=== PATIENT | female | born 1935 | race Caucasian/White ===

== ENCOUNTER 2022-12-10 17:27 | Inpatient (IN) ==
[2022-12-10] MEDS ORDERED: IOPAMIDOL 100 ML BOTTLE IV ONE (17:28)
--- NOTE | 2022-12-10 17:56 | Emergency Department Note ---
HPI General Chief complaint: Headache Stated complaint: headache Time Seen by Provider: 12/10/22 17:29 Source: patient Mode of arrival: wheelchair Limitations: no limitations History of Present Illness HPI Narrative: Narrative: This is a 87-year-old female resident of [place] who presents with her friend complaining of a severe headache in the bifrontal regions starting this afternoon. She denies any fall or any neurologic disturbances. She denies any previous history of headaches. Her son states that he saw her about 4 PM and she had slurred speech and could not focus to write some things down for him. He attributed it to a urinary tract infection, which he states affects her in this way. Her friend from [place] states that she was having difficulties earlier in the day, but cannot specify exactly when they started. The patient states that her headache started "a little while ago". She denies any nausea, fever sweats chills, neck pain, or any falls. Related Data Home Medications Medication Instructions Recorded Confirmed cholecalciferol (vitamin D3) 125 125 mcg PO QDAY 10/06/22 10/26/22 mcg (5,000 unit) capsule cranberry extract 25,000 mg PO 10/06/22 10/26/22 Previous Rx's Medication Instructions Recorded hydrochlorothiazide 25 mg tablet 25 mg PO QDAY #90 tabs 10/26/22 lisinopril 20 mg tablet 20 mg PO QDAY #90 tabs 10/26/22 metformin 500 mg tablet,extended See Rx Instructions PO .COMPLEX 10/26/22 release 24 hr #270 tabs Allergies Allergy/AdvReac Type Severity Reaction Status Date / Time No Known Drug Allergies Allergy Unverified 10/26/22 14:56 Review of Systems ROS ROS Narrative: Narrative: All systems ED: reviewed and negative except as stated. [facility] Narrative Patient History Narrative: Narrative: Medical/Surgical/Family History All Active Problems (Updated 12/10/22 @ 23:44 by Cheko Hargrove MD) Acute CVA (cerebrovascular accident) (Acute) Headache (Acute) Fall (Acute) Laceration of skin of scalp (Acute) Vitamin D deficiency (Acute) Essential hypertension (Acute) Frequent UTI (Acute) Gout (Chronic) Urge incontinence of urine (Chronic) DM type 2 (diabetes mellitus, type 2) (Chronic) Medical History DM type 2 (diabetes mellitus, type 2) Gout Left ankle/heel History of pulmonary embolism Urge incontinence of urine Urinary tract infection Surgical History No pertinent past surgical history Family History Other No pertinent family history Social History Smoking Status: Never smoker Alcohol Intake Frequency: a few times a month Substance Use: does not use Exam Narrative Narrative: Narrative: General alert oriented x3, and responsive but confused. Neuro: GCS equals 15. Pupils equal round reactive and accommodating extraocular movements are intact without nystagmus. Cranial nerves II through XII are grossly intact with the possibility of some asymmetry of her smile. Patient neglects her left side as when asked to squeeze hands and and to lift legs to touch my hand. She states there is no sensory deficit however. Neck: Supple nontender to movement with no carotid bruits. Head: Atraumatic. CV: Regular rate and rhythm without murmurs clicks rubs or gallops. General Limitations: no limitations Course Vital Signs Vital signs: Vital Signs Temperature 98.6 F 12/10/22 17:34 Pulse Rate 100 H 12/10/22 17:34 Respiratory Rate 19 12/10/22 17:34 Blood Pressure 124/81 12/10/22 17:34 Pulse Oximetry (%) 93 12/10/22 17:34 Oxygen Delivery Method Room Air 12/10/22 17:34 Temperature 98.6 F 12/10/22 17:34 Pulse Rate 106 H 12/10/22 23:26 Respiratory Rate 24 H 12/10/22 23:26 Blood Pressure 187/106 12/10/22 23:26 Pulse Oximetry (%) 100 12/10/22 23:26 Oxygen Delivery Method Room Air 12/10/22 17:34 MDM MDM Narrative Medical decision making narrative: Narrative: Consult with neurology was obtained and they stated that it sounded more like an ischemic cerebrovascular event considering the ignoring the left side of the body. The patient is able to move but just does not recognize her left side of the body when she is asked to do things bilaterally. When speaking about into her friend who is sitting right in front of her she looks over to the right side of the room and gestures in that direction with her right hand. Patient had a slight leukocytosis of 12.9 so a spinal tap was attempted after sedating the patient with ketamine 25 mg IV this was unsuccessful try and obtain any spinal fluid. Blood cultures were obtained and the patient was placed on Rocephin 1 g IV tonight however it seems unlikely that she actually has a infectious etiology for her symptoms. After discussing the case with the hospitalist she was placed on aspirin and clopidogrel and an MRA was ordered for the morning. Sepsis Sepsis Identified: No Lab Data 12/10/22 18:32 12/10/22 18:32 Labs: Lab Results 12/10/22 12/10/22 12/10/22 Range/Units 18:26 18:26 18:32 WBC 12.9 H (4.5-11.0) K/mcL RBC 4.43 (3.59-5.38) M/mcL Hgb 14.0 (11.2-15.7) g/dL Hct 41.7 (34.1-44.9) % POC Hct 45.0 (36-48) MCV 94.1 (80.0-100.0) fL MCH 31.6 (26.0-34.0) pg MCHC 33.6 (31.0-36.0) g/dL RDW 11.7 (11.5-14.5) % Plt Count 293 (140-440) K/mcL MPV 10.5 (8.8-12.5) fL Immature Gran % (Auto) 0.3 (0.0-0.5) % Neut % (Auto) 56.6 (38.0-78.0) % Lymph % (Auto) 25.7 (15.5-49.0) % [place] % (Auto) 9.2 (1.0-12.0) % Eos % (Auto) 7.3 H (0.0-7.0) % Baso % (Auto) 0.9 (0.0-2.0) % Lymph # (Auto) 3.32 (1.50-4.80) K/mcL [place] # (Auto) 1.19 H (0.10-0.90) K/mcL Eos # (Auto) 0.94 H (0.00-0.70) K/mcL Baso # (Auto) 0.11 (0.00-0.30) K/mcL Immature Gran # 0.04 (0.00-0.05) K/mcl Absolute Neutrophils 7.31 (1.80-8.00) K/mcL PT (11.9-14.5) sec INR (0.9-1.1) POC Sodium 136 (133-145) Sodium (133-145) mmol/L POC Potassium 3.9 (3.3-5.1) Potassium (3.3-5.1) mmol/L POC Chloride 93 L (96-108) Chloride (96-108) mmol/L Carbon Dioxide (22-30) mmol/L POC Total CO2 33.0 H (22-30) Anion Gap (8.0-16.0) POC BUN 14 (6-20) BUN (8-23) mg/dL Creatinine (0.6-1.1) mg/dL POC Creatinine 0.5 L (0.6-1.2) GFR Calculation Glucose (70-105) mg/dL POC Glucose 121 H (70-105) Calcium (8.6-10.4) mg/dL POC WB Ioniz Calcium 1.19 (1.16-1.32) Total Bilirubin (0.1-1.0) mg/dL AST (<32) U/L ALT (<40) U/L Alkaline Phosphatase (39-117) U/L Total Protein (5.9-8.4) gm/dL Albumin (3.2-5.2) gm/dL Globulin (2.2-3.7) gm/dL Albumin/Globulin Ratio (1.0-2.3) Urine Color Straw Urine Appearance Clear (Clear) Urine pH 7.0 (5.0-9.0) Ur Specific [place] 1.008 (1.000-1.035) Urine Protein Negative (Negative) mg/dL Urine Glucose (UA) Negative (Negative) mg/dL Urine Ketones Negative (Negative) mg/dL Urine Occult Blood Negative (Negative) mg/dL Urine Nitrate Negative (Negative) Urine Bilirubin Negative (Negative) mg/dL Urine Urobilinogen Negative mg/dL Ur Leukocyte Esterase Negative (Negative) /uL Ur Culture Indicated? No 12/10/22 12/10/22 Range/Units 18:32 18:32 WBC (4.5-11.0) K/mcL RBC (3.59-5.38) M/mcL Hgb (11.2-15.7) g/dL Hct (34.1-44.9) % POC Hct (36-48) MCV (80.0-100.0) fL MCH (26.0-34.0) pg MCHC (31.0-36.0) g/dL RDW (11.5-14.5) % Plt Count (140-440) K/mcL MPV (8.8-12.5) fL Immature Gran % (Auto) (0.0-0.5) % Neut % (Auto) (38.0-78.0) % Lymph % (Auto) (15.5-49.0) % [place] % (Auto) (1.0-12.0) % Eos % (Auto) (0.0-7.0) % Baso % (Auto) (0.0-2.0) % Lymph # (Auto) (1.50-4.80) K/mcL [place] # (Auto) (0.10-0.90) K/mcL Eos # (Auto) (0.00-0.70) K/mcL Baso # (Auto) (0.00-0.30) K/mcL Immature Gran # (0.00-0.05) K/mcl Absolute Neutrophils (1.80-8.00) K/mcL PT 12.3 (11.9-14.5) sec INR 0.9 (0.9-1.1) POC Sodium (133-145) Sodium 133 (133-145) mmol/L POC Potassium (3.3-5.1) Potassium 4.0 (3.3-5.1) mmol/L POC Chloride (96-108) Chloride 92 L (96-108) mmol/L Carbon Dioxide 28 (22-30) mmol/L POC Total CO2 (22-30) Anion Gap 13.0 (8.0-16.0) POC BUN (6-20) BUN 11 (8-23) mg/dL Creatinine 0.5 L (0.6-1.1) mg/dL POC Creatinine (0.6-1.2) GFR Calculation 87 Glucose 110 H (70-105) mg/dL POC Glucose (70-105) Calcium 9.9 (8.6-10.4) mg/dL POC WB Ioniz Calcium (1.16-1.32) Total Bilirubin 0.3 (0.1-1.0) mg/dL AST 45 H (<32) U/L ALT 34 (<40) U/L Alkaline Phosphatase 71 (39-117) U/L Total Protein 7.9 (5.9-8.4) gm/dL Albumin 4.3 (3.2-5.2) gm/dL Globulin 3.6 (2.2-3.7) gm/dL Albumin/Globulin Ratio 1.2 (1.0-2.3) Urine Color Urine Appearance (Clear) Urine pH (5.0-9.0) Ur Specific [place] (1.000-1.035) Urine Protein (Negative) mg/dL Urine Glucose (UA) (Negative) mg/dL Urine Ketones (Negative) mg/dL Urine Occult Blood (Negative) mg/dL Urine Nitrate (Negative) Urine Bilirubin (Negative) mg/dL Urine Urobilinogen mg/dL Ur Leukocyte Esterase (Negative) /uL Ur Culture Indicated? Discharge Plan Patient/Caregiver Discharge Instructions Pt seen by SUPPLY CLERK/PA only: No Clinical Impression: Acute CVA (cerebrovascular accident), Headache Patient Disposition: Xfer As Inpt ([facility]) Follow up with: Mustapha Steele DO [Primary Care Provider] - Prescriptions: No Action cranberry extract 25,000 mg PO cholecalciferol (vitamin D3) 125 mcg (5,000 unit) capsule 125 mcg PO QDAY hydrochlorothiazide 25 mg tablet 25 mg PO QDAY Qty: 90 3RF lisinopril 20 mg tablet 20 mg PO QDAY Qty: 90 3RF metformin 500 mg tablet extended release 24 hr See Rx Instructions PO .COMPLEX Qty: 270 3RF Rx Instructions: 1000 mg qAM and 500 mg qPM orally;
--- NOTE | 2022-12-10 18:18 | Cat Scan Report ---
History: Headaches and increasing confusion TECHNIQUE: The brain was imaged without contrast in axial plane at 2.5 mm intervals. Sagittal and coronal reformats were created. The radiation exposure was limited using dose reduction technology. FINDINGS: There are age-related degenerative changes with mild to moderate atrophy both above and below the tentorium. There are patchy areas of decreased attenuation in the centrum semiovale in the frontal and parietal lobes consistent with age-related ischemia or degeneration. No infarct is detected. There is no hemorrhage, mass effect or evidence of inflammation. Ventricles are prominent but proportionate to the atrophy. There is no abnormal extra-axial fluid collection. Bone windows show no skull lesion. 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 There is moderate bilateral ethmoid, sphenoid and left frontal sinusitis. The left frontal sinusitis has improved. The opacification of the other sinuses has remained relatively unchanged since prior CT on 10/19/22. The appearance of the brain has remained stable. 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 IMPRESSION: Stable age-related degenerative changes in the brain. Moderate sinusitis Dr. Hargrove was called with the report Interpreted and Authenticated by: Luis Enrique Amador 12/10/22
[2022-12-10 19:01] LABS: Basophils # (Auto) 0.11 K/mcL (0.00-0.30); Basophils % (Auto) 0.9 % (0.0-2.0); Eosinophils # (Auto) 0.94 K/mcL (0.00-0.70); Eosinophils % (Auto) 7.3 % (0.0-7.0); Hematocrit 41.7 % (34.1-44.9); Lymphocytes # (Auto) 3.32 K/mcL (1.50-4.80); Lymphocytes % (Auto) 25.7 % (15.5-49.0); Mean Cell Volume 94.1 fL (80.0-100.0); Mean Corpuscular HGB Conc 33.6 g/dL (31.0-36.0); Mean Platelet Volume 10.5 fL (8.8-12.5); Monocytes # (Auto) 1.19 K/mcL (0.10-0.90); Monocytes % (Auto) 9.2 % (1.0-12.0); Neutrophils % (Auto) 56.6 % (38.0-78.0); Platelet Count 293 K/mcL (140-440); RBC 4.43 M/mcL (3.59-5.38); Red Cell Distribution Width 11.7 % (11.5-14.5); WBC 12.9 K/mcL (4.5-11.0)
[2022-12-10 19:10] LABS: Appearance,Urine CLEAR (Clear); Bilirubin,Urine Negative (Negative); Color,Urine STRAW; Culture Indicated,Urine No; Glucose,Urine (UA) Negative (Negative); Ketones,Urine Negative (Negative); Leukocyte Esterase,Urine Negative /uL (Negative); Nitrate,Urine Negative (Negative); Protein,Urine Negative (Negative); Specific Gravity,Urine 1.008 (1.000-1.035); Urine Blood Negative (Negative); Urobilinogen,Urine Negative
[2022-12-10 19:13] LABS: INR 0.9 (0.9-1.1); Prothrombin Time 12.3 sec (11.9-14.5)
[2022-12-10 19:20] LABS: ALT/SGPT 34 U/L (<40); AST/SGOT 45 U/L (<32); Albumin 4.3 gm/dL (3.2-5.2); Albumin/Globulin Ratio 1.2 (1.0-2.3); Alkaline Phosphatase 71 U/L (39-117); Bilirubin,Total 0.3 mg/dL (0.1-1.0); Blood Urea Nitrogen 11 mg/dL (8-23); Calcium 9.9 mg/dL (8.6-10.4); Carbon Dioxide 28 mmol/L (22-30); Chloride 92 mmol/L (96-108); Globulin 3.6 gm/dL (2.2-3.7); Glomerular Filtration Rate 87; Glucose 110 mg/dL (70-105)
--- NOTE | 2022-12-10 20:17 | Cat Scan Report ---
History: New stroke symptoms with headaches and ignoring the left side of body TECHNIQUE: Following injection of intravenous nonionic contrast the patient was imaged during the arterial phase from the aortic arch to the top of the head. Sagittal, coronal and 3-D reformatted images were created. The radiation exposure was limited using dose reduction technology. FINDINGS: NECK: The lung apices are clear. The aortic arch is normal in caliber. There are few small calcified plaques along the wall. The great vessels arising from the aorta are normal in caliber with no stenosis or occlusion. The common carotids are normal. There is a moderate amount of densely calcified plaque at the origins of both internal carotids. This causing a 60% stenosis of the right and 50% stenosis left internal carotid and their origins. There is no stenosis of the external carotids. The mid and distal portions of both internal carotids are normal. There is no evidence of ulcerated plaque or dissection. The vertebral arteries are normal in caliber and symmetric. Incidentally noted is severe degenerative disc disease and arthritis at C6-7 with moderate disc degeneration at C3-4 and C5-6. Brain: There are calcified plaques in the cavernous portions of both internal carotids. These are not causing significant stenosis. The supraclinoid internal carotids are normal. The anterior and middle cerebral arteries are normal in caliber. The intracranial portions of both vertebral arteries are normal and nearly symmetric. The basilar artery and posterior fossa circulation are normal. There is no intracranial stenosis, thrombosis or vascular malformation. No aneurysm or abnormal enhancing lesion is present. 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 Normal intracranial arterial circulation. Dr. Hargrove was called with the report Interpreted and Authenticated by: Luis Enrique Amador 12/10/22
[2022-12-10] MEDS ORDERED: morphine 2 MG/ML VIAL IV ONE (20:22)
--- NOTE | 2022-12-10 20:31 | Cat Scan Report ---
Impression: The study is dictated in conjunction with the brain CT angiogram. Please see that report Interpreted and Authenticated by: Luis Enrique Amador 12/10/22
[2022-12-10 20:39] LABS: POC Calcium, Ionized 1.19 (1.16-1.32); POC Creatinine 0.5 (0.6-1.2); POC Potassium 3.9 (3.3-5.1)
[2022-12-10] MEDS ORDERED: ONDANSETRON 4 MG/2 ML VIAL ONE (20:44)
[2022-12-10] MEDS ORDERED: ONDANSETRON 4 MG/2 ML VIAL IV ONE (20:44)
[2022-12-10] MEDS ORDERED: HALOPERIDOL LACTATE 5 MG/ML VIAL IV ONE (21:03)
[2022-12-10] MEDS ORDERED: 0.9 % SODIUM CHLORIDE 250 ML IV ONE (21:04)
[2022-12-10] MEDS ORDERED: LORazepam 2 MG/ML VIAL IV ONE ×2 (22:22→22:35)
[2022-12-10] MEDS ORDERED: KETAMINE 10 MG/ML ML IV ONE ×2 (22:34→23:44)
[2022-12-10] MEDS ORDERED: SODIUM CHLORIDE 0.9% IV ONE (22:45)
[2022-12-10] MEDS ORDERED: KETAMINE IV ONE (22:45)
[2022-12-10] MEDS ORDERED: ASPIRIN 325 MG ENTERIC COATED TABLET PO ONE (23:31)
[2022-12-10] MEDS ORDERED: CLOPIDOGREL 300 MG TABLET PO ONE (23:32)
[2022-12-10] MEDS ORDERED: cefTRIAXone 1 GM VIAL IV ONE (23:34)
[2022-12-10] MEDS ORDERED: KETAMINE 50 MG/ML ML ONE ×2 (23:43→23:48)
--- NOTE | 2022-12-11 00:07 | Internal Med History&Physical ---
HPI History of Present Illness Patient information: Note initiated : 12/11/22 at 12:04 am Service Date, if different from initiated Date: [12/10/22] Patient: Suzie Disla a 87 y/o F admitted on for headache. Chief Complaint: [slurred speech, headache] Chief complaint: slurred speech, headache History of present illness: Ms. Disla is a 87 year old F history of essential hypertensions, type 2 diabetes mellitus, recurrent UTI, presenting with 1 day history of new onset slurred speech and headaches. Patient was normal yesterday. Today at around 3 PM in the afternoon, her son noticed the patient's to have slurred speech. He alerted his sibling to send the patient to our ER for further evaluations. Upon arrival to our ER at around 5:30 PM, patient was coming of severe headaches. Initial work-up by the ED physician found patient to have left-sided neglect and there was no sensory deficit or motor deficit when she was asked about her individual limbs. It was also reported that patient would look over to her r ight and neglect. No nocturnal rigidity reported. Vital signs significant for elevated blood pressure 215 over 117 mmHg, as well as mild tachycardia with heart rate in the low 100s. Labs significant for leukocytosis with WBC 12.9. UA does not suggest the presence of urinary infections. CT of the head without contrast no acute intracranial pathologies. CT angiogram head at the neck showing atherosclerosis in the left carotid bifurcations bilaterally causing 60% stenosis at the origin of the right internal carotid and 50% stenosis at the origin of the left internal carotids. Lumbar puncture was attempted but failed. Patient was currently sedated. Admission request is called for acute stroke with differential diagnosis of viral and much less likely bacterial meningitis. Review of Systems ROS unobtainable: due to mental status PFSH PFSH All Active Problems (Updated 12/11/22 @ 00:21 by Constantine Alan MD) Meningitis (Acute) Hypertensive urgency (Acute) Acute CVA (cerebrovascular accident) (Acute) Headache (Acute) Fall (Acute) Laceration of skin of scalp (Acute) Vitamin D deficiency (Acute) Essential hypertension (Acute) Frequent UTI (Acute) Gout (Chronic) Urge incontinence of urine (Chronic) DM type 2 (diabetes mellitus, type 2) (Chronic) Medical History DM type 2 (diabetes mellitus, type 2) Gout Left ankle/heel History of pulmonary embolism Urge incontinence of urine Urinary tract infection Surgical History No pertinent past surgical history Family History Other No pertinent family history Social History marital status: smoking status: Never smoker alcohol intake frequency: a few times a month substance use type: does not use MEDS/ALLERGIES Home Medications and Allergies Home Medications Medication Instructions Recorded Confirmed Type cholecalciferol (vitamin D3) 125 125 mcg PO QDAY 10/06/22 10/26/22 History mcg (5,000 unit) capsule cranberry extract 25,000 mg PO 10/06/22 10/26/22 History hydrochlorothiazide 25 mg tablet 25 mg PO QDAY #90 tabs 10/26/22 10/26/22 Rx lisinopril 20 mg tablet 20 mg PO QDAY #90 tabs 10/26/22 10/26/22 Rx metformin 500 mg tablet,extended See Rx Instructions PO .COMPLEX 10/26/22 10/26/22 Rx release 24 hr #270 tabs Allergies Allergy/AdvReac Type Severity Reaction Status Date / Time No Known Drug Allergies Allergy Unverified 10/26/22 14:56 EXAM Constitutional Vitals: Temp Pulse Resp BP Pulse Ox O2 Del Method 37.0 C 106 H 24 H 187/106 100 Room Air 12/10/22 17:34 12/10/22 23:26 12/10/22 23:26 12/10/22 23:26 12/10/22 23:26 12/10/22 17:34 General appearance: no acute distress Head Head exam: Present atraumatic and normocephalic Eye Eye exam: Present EOMI and PERRL ENT ENT exam: Present mucous membranes moist, normal exam and normal external ear exam Neck Neck exam: Present normal inspection; Absent lymphadenopathy, tenderness or thyromegaly Respiratory Respiratory exam: Absent accessory muscle use, respiratory distress or wheezes Cardiovascular Cardiovascular exam: Present normal rate and rhythm; Absent JVD GI/Abdominal GI/Abdominal exam: Present normal bowel sounds and soft; Absent organomegaly or tenderness Extremities Exam Extremities exam: Present full ROM, normal capillary refill and normal inspection; Absent tenderness Neurological Exam Neurological exam: Present CN II-XII intact Additional comments: sedated left sided neglect Psychiatric Psychiatric exam: Present normal affect and normal mood; Absent anxious or depressed Skin Skin exam: Present dry and intact DATA Data Completed and Pending Labs: Labs from last 24 hours 12/10/22 12/10/22 12/10/22 18:32 18:32 18:32 WBC 12.9 H RBC 4.43 Hgb 14.0 Hct 41.7 POC Hct MCV 94.1 MCH 31.6 MCHC 33.6 RDW 11.7 Plt Count 293 MPV 10.5 Immature Gran % (Auto) 0.3 Neut % (Auto) 56.6 Lymph % (Auto) 25.7 [place] % (Auto) 9.2 Eos % (Auto) 7.3 H Baso % (Auto) 0.9 Lymph # (Auto) 3.32 [place] # (Auto) 1.19 H Eos # (Auto) 0.94 H Baso # (Auto) 0.11 Immature Gran # 0.04 Absolute Neutrophils 7.31 PT 12.3 INR 0.9 POC Sodium Sodium 133 POC Potassium Potassium 4.0 POC Chloride Chloride 92 L Carbon Dioxide 28 POC Total CO2 Anion Gap 13.0 POC BUN BUN 11 Creatinine 0.5 L POC Creatinine GFR Calculation 87 Glucose 110 H POC Glucose Calcium 9.9 POC WB Ioniz Calcium Total Bilirubin 0.3 AST 45 H ALT 34 Alkaline Phosphatase 71 Total Protein 7.9 Albumin 4.3 Globulin 3.6 Albumin/Globulin Ratio 1.2 Urine Color Urine Appearance Urine pH Ur Specific [place] Urine Protein Urine Glucose (UA) Urine Ketones Urine Occult Blood Urine Nitrate Urine Bilirubin Urine Urobilinogen Ur Leukocyte Esterase Ur Culture Indicated? 12/10/22 12/10/22 18:26 18:26 WBC RBC Hgb Hct POC Hct 45.0 MCV MCH MCHC RDW Plt Count MPV Immature Gran % (Auto) Neut % (Auto) Lymph % (Auto) [place] % (Auto) Eos % (Auto) Baso % (Auto) Lymph # (Auto) [place] # (Auto) Eos # (Auto) Baso # (Auto) Immature Gran # Absolute Neutrophils PT INR POC Sodium 136 Sodium POC Potassium 3.9 Potassium POC Chloride 93 L Chloride Carbon Dioxide POC Total CO2 33.0 H Anion Gap POC BUN 14 BUN Creatinine POC Creatinine 0.5 L GFR Calculation Glucose POC Glucose 121 H Calcium POC WB Ioniz Calcium 1.19 Total Bilirubin AST ALT Alkaline Phosphatase Total Protein Albumin Globulin Albumin/Globulin Ratio Urine Color Straw Urine Appearance Clear Urine pH 7.0 Ur Specific [place] 1.008 Urine Protein Negative Urine Glucose (UA) Negative Urine Ketones Negative Urine Occult Blood Negative Urine Nitrate Negative Urine Bilirubin Negative Urine Urobilinogen Negative Ur Leukocyte Esterase Negative Ur Culture Indicated? No A/P Assessment and plan (1) DM type 2 (diabetes mellitus, type 2): Status: Chronic (2) Hypertensive urgency: Status: Acute (3) Acute CVA (cerebrovascular accident): Status: Acute (4) Meningitis: Status: Acute Narrative A/P Narrative: Assessment and Plans: 1. Acute ischemic stroke: DDx: bacterial meningitis, aseptic meningitis Inpatient PCU with telemetry NPO with IV fluid until cleared by bedside swallowing evaluation NIH stroke scale qSHIFT Neuro Check q2hr Permissive hypertension for 48 hours with Hydralazine 10mg IV q4-6hr PRN SBBP>=220 and/or DBP>=110mmHg MRI brain stroke protocol 2D echocardiogram Lipid panel HgA1c screening Aspirin Plaxiv Lipitor Physical therapy Occupational therapy Speech therapy Empiric antibiotics with Vancomycin, Ampicillin, and Meropenem for 48 hours while awaiting LP and blood culture results Will attempt lumbar puncture again in the morning 2. Essential hypertension: Permissive hypertension for 48 hours with Hydralazine 10mg IV q4-6hr PRN SBBP>=220 and/or DBP>=110mmHg 3. T2DM: HgA1c screening Hold Metformin Insulin Lispro SSI q6hr while NPO Accu Check q6hr while NPO Hypoglycemia protocol D5LR@100cc/hr while NPO while awaiting bedside swallowing evaluation GI ppx: not currently indicated DVT ppx: Lovenox Code status: Full Prognosis: guarded Disposition: inpatient PCU; PT OT SLT Time Spent With Patient Time: Total time spent is greater than 50% in coordination of care (as documented) at patient's floor/unit and/or counseling patient: Initial: Total time with patient: 55 - 74 minutes
[2022-12-11] MEDS ORDERED: VANCOMYCIN 1,000 MG in 0.9 % SODIUM CHLORIDE 250 ML IV ONE (00:13)
[2022-12-11] MEDS ORDERED: VANCOMYCIN PER PHARMACY IV ONE (01:18)
[2022-12-11] MEDS ORDERED: ONDANSETRON 4 MG/2 ML VIAL IV PRN (01:18)
[2022-12-11] MEDS ORDERED: DEXTROSE 50% 50 ML VIAL IV PRN (01:18)
[2022-12-11] MEDS ORDERED: LORazepam 2 MG/ML VIAL IV PRN (01:18)
[2022-12-11] MEDS ORDERED: SENNOSIDES 1 TABLET PO PRN (01:18)
[2022-12-11] MEDS ORDERED: DEXTROSE 5%-LR 1,000 ML IV SCH (01:18)
[2022-12-11] MEDS ORDERED: LACTULOSE 20 GM/30 ML ORAL.SOL PO PRN (01:18)
[2022-12-11] MEDS ORDERED: DEXTROSE 31 GM ORAL.SUSP PO PRN (01:18)
[2022-12-11] MEDS ORDERED: hydrALAZINE 20 MG/ML VIAL IV PRN (01:18)
[2022-12-11] MEDS ORDERED: IPRATROPIUM/ALBUTEROL 3 ML AMPUL.NEB NEB PRN (01:18)
[2022-12-11] MEDS ORDERED: ACETAMINOPHEN 650 MG/65 ML BAG IV ONE (01:24)
[2022-12-11] MEDS ORDERED: INSULIN LISPRO 1 UNIT/0.01 ML UNIT SQ ONE ×2 (01:39→05:44)
[2022-12-11] MEDS ORDERED: SODIUM CHLORIDE IV ONE ×2 (01:40→05:48)
[2022-12-11] MEDS: INSULIN LISPRO 1 UNIT/0.01 ML UNIT SQ SCH ×5 (01:40→21:05)
[2022-12-11] MEDS ORDERED: ACETAMINOPHEN 1,000 MG/100 ML BAG IV ONE (01:44)
[2022-12-11 02:14] LABS: HDL Cholesterol 46 mg/dL (>40); LDL Cholesterol,Calculated 47 mg/dL (<100); Non-HDL Cholesterol 55 mg/dL (<130); Triglycerides 45 mg/dL (<150)
[2022-12-11] MEDS: MEROPENEM 2 GM in 0.9 % SODIUM CHLORIDE 50 ML IV SCH ×3 (02:32→14:17)
[2022-12-11] MEDS: AMPICILLIN SODIUM 2 GM VIAL IV SCH ×2 (03:11→05:48)
[2022-12-11] MEDS: 0.9 % SODIUM CHLORIDE 10 ML SYRINGE IV SCH ×3 (05:50→21:07)
[2022-12-11 07:30] LABS: ALT/SGPT 24 U/L (<40); AST/SGOT 27 U/L (<32); Albumin 3.7 gm/dL (3.2-5.2); Albumin/Globulin Ratio 1.3 (1.0-2.3); Alkaline Phosphatase 57 U/L (39-117); Bilirubin,Total 0.4 mg/dL (0.1-1.0); Blood Urea Nitrogen 9 mg/dL (8-23); Calcium 8.5 mg/dL (8.6-10.4); Carbon Dioxide 29 mmol/L (22-30); Chloride 96 mmol/L (96-108); Globulin 2.9 gm/dL (2.2-3.7); Glomerular Filtration Rate 82; Glucose 163 mg/dL (70-105)
[2022-12-11 07:35] LABS: Basophils # (Auto) 0.07 K/mcL (0.00-0.30); Basophils % (Auto) 0.5 % (0.0-2.0); Eosinophils # (Auto) 0.09 K/mcL (0.00-0.70); Eosinophils % (Auto) 0.7 % (0.0-7.0); Hematocrit 38.4 % (34.1-44.9); Lymphocytes # (Auto) 2.46 K/mcL (1.50-4.80); Lymphocytes % (Auto) 17.8 % (15.5-49.0); Mean Cell Volume 93.7 fL (80.0-100.0); Mean Corpuscular HGB Conc 33.9 g/dL (31.0-36.0); Mean Platelet Volume 10.8 fL (8.8-12.5); Monocytes # (Auto) 1.22 K/mcL (0.10-0.90); Monocytes % (Auto) 8.8 % (1.0-12.0); Neutrophils % (Auto) 71.8 % (38.0-78.0); Platelet Count 302 K/mcL (140-440); Red Cell Distribution Width 11.8 % (11.5-14.5); WBC 13.8 K/mcL (4.5-11.0)
[2022-12-11] MEDS ORDERED: VANCOMYCIN PER PHARMACY IV SCH (07:45)
[2022-12-11 07:55] LABS: Estimated Average Glucose(eAG) 134 mg/dL; Hemoglobin A1C 6.3 % Hgb (4.0-6.0)
--- NOTE | 2022-12-11 08:21 | XRay Report ---
HISTORY: Increased confusion, headaches FINDINGS: There are mild generalized alveolar opacities in both lungs. This is predominantly located in a perihilar distribution. Heart size is upper limits of normal. No pleural effusion is present. There is no lobar consolidation and no evidence of a mass. Arthritis is present in the spine and both shoulders. IMPRESSION: Bilateral alveolar opacities. This could be due to congestive heart failure with edema or bilateral pneumonia. Interpreted and Authenticated by: Luis Enrique Amador 12/11/22
[2022-12-11] MEDS: CLOPIDOGREL 75 MG TABLET PO SCH (08:57)
[2022-12-11] MEDS: ENOXAPARIN 40 MG/0.4 ML SYRINGE SQ SCH (08:57)
[2022-12-11] MEDS: ATORVASTATIN 40 MG TABLET PO SCH (08:57)
[2022-12-11] MEDS: ASPIRIN 81 MG TAB.CHEW PO SCH (08:57)
[2022-12-11] MEDS: AMPICILLIN SODIUM 2 GM in 0.9 % SODIUM CHLORIDE 100 ML IV SCH ×4 (09:15→21:06)
--- NOTE | 2022-12-11 09:16 | Internal Med Progress Note ---
SUBJECTIVE Subjective Patient information: Note initiated : 12/11/22 at 9:14 am Service Date, if different from initiated Date: [] Patient: Suzie Disla a 87 y/o F admitted on 12/11/22 for headache. Chief Complaint: [] Interval history: Ms. Disla is a 87 year old F history of essential hypertensions, type 2 diabetes mellitus, recurrent UTI, presenting with 1 day history of new onset slurred speech and headaches. Patient was normal yesterday. Today at around 3 PM in the afternoon, her son noticed the patient's to have slurred speech. He alerted his sibling to send the patient to our ER for further evaluations. Upon arrival to our ER at around 5:30 PM, patient was coming of severe headaches. Initial work-up by the ED physician found patient to have left-sided neglect and there was no sensory deficit or motor deficit when she was asked about her individual limbs. It was also reported that patient would look over to her right and neglect. No nocturnal rigidity reported. Vital signs significant for elevated blood pressure 215 over 117 mmHg, as well as mild tachycardia with heart rate in the low 100s. Labs significant for leukocytosis with WBC 12.9. UA does not suggest the presence of urinary infections. CT of the head without contrast no acute intracranial pathologies. CT angiogram head at the neck showing atherosclerosis in the left carotid bifurcations bilaterally causing 60% stenosis at the origin of the right internal carotid and 50% stenosis at the origin of the left internal carotids. Lumbar puncture was attempted but failed. Patient was currently sedated. Admission request is called for acute stroke with differential diagnosis of viral and much less likely bacterial meningitis. 12/11: Low-grade fever Tmax 37.8 early this morning. Cultures no growth to date. NIH stroke scale pending. Patient is awake and alert and oriented x3 this morning as she passed bedside swallowing evaluations. Blood pressure is fine currently 100 over 59 mmHg. She denies any headaches. There is no more spatial neglect or visual field neglect. Patient is feeling fine. Pending MRI of the brain stroke protocol as well as 2D echocardiogram. Continue aspirin, Plavix, and Lipitor. Continue permissive hypertension for 48 hours. Resume CC diet and saline lock the patient's. Continue to hold metformin and do sliding scale insulin for glycemic control instead. Since patient improved clinically, and empiric antibiotics already started, the value of delayed lumbar puncture is extremely low and hence would not proceed. Physical therapy, Occupational Therapy, and speech therapy evaluation and treatments. Constitutional Vitals: Vital Signs Temp Pulse Resp BP Pulse Ox O2 Del Method O2 Flow Rate 36.4 C 73 23 H 100/59 95 Nasal Cannula 2 12/11/22 08:01 12/11/22 08:01 12/11/22 08:01 12/11/22 08:01 12/11/22 08:01 12/11/22 06:01 12/11/22 06:01 Period Temp Pulse Resp BP Sys/Field Pulse Ox O2 Del Method O2 Flow Rate Last 24 Hr 36.4 C-37.8 C 73-117 17-30 100-215/59-172 91-100 Nasal Cannula-Room Air 2-2 Intake and Output 12/10/22 12/11/22 12/11/22 19:59 03:59 11:59 Intake Total 365 Output Total 1 1 Balance 364 -1 Weight 69.717 kg 66.933 kg Intake & Output: Intake & Output 12/10/22 12/11/22 12/11/22 19:59 03:59 11:59 Intake Total 365 Output Total 1 1 Balance 364 -1 Weight 69.717 kg 66.933 kg Intake: IV 365 Merrem 2 gm In Sodium Chloride 50 0.9% 50 ml @ 100 mls/hr IV Q8H [facility] Rx#:[id number] Vancomycin 1,000 mg In Sodium 250 Chloride 0.9% 250 ml @ 250 mls/ hr IV ONCE ONE Rx#:[id number] Output: # of times incontinent of urine 1 1 Head Head exam: Present atraumatic and normal inspection Eye Eye exam: Present normal appearance ENT ENT exam: Present mucous membranes moist, normal exam and normal external ear exam Neck Neck exam: Present normal inspection Respiratory Respiratory exam: Present normal respiratory exam Cardiovascular Cardiovascular exam: Present normal rate and rhythm GI/Abdominal GI/Abdominal exam: Present normal bowel sounds Back Exam Back exam: Present normal inspection Neurological Exam Neurological exam: Present alert and oriented X3 Skin Skin exam: Present intact and warm OBJ DATA Labs 12/11/22 05:39 12/11/22 05:39 Labs: Abnormal Lab Results 12/11/22 12/11/22 12/10/22 05:39 05:39 18:32 WBC 13.8 H Eos % (Auto) [place] # (Auto) 1.22 H Eos # (Auto) Immature Gran # 0.06 H Absolute Neutrophils 9.93 H Sodium 132 L POC Chloride Chloride 92 L POC Total CO2 Anion Gap 7.0 L Creatinine 0.5 L POC Creatinine Glucose 163 H 110 H POC Glucose Hemoglobin A1c 6.3 H Calcium 8.5 L AST 45 H 12/10/22 12/10/22 18:32 18:26 WBC 12.9 H Eos % (Auto) 7.3 H [place] # (Auto) 1.19 H Eos # (Auto) 0.94 H Immature Gran # Absolute Neutrophils Sodium POC Chloride 93 L Chloride POC Total CO2 33.0 H Anion Gap Creatinine POC Creatinine 0.5 L Glucose POC Glucose 121 H Hemoglobin A1c Calcium AST Meds: Medications Acetaminophen (Acetaminophen 325 Mg Tablet) 650 mg PO Q6HP PRN; Protocol PRN Reason: Per Pain Protocol/Fever > 101 Albuterol/Ipratropium (Ipratropium/Albuterol 3 Ml Ampul.Neb) 3 ml NEB Q4HRT PRN PRN Reason: Wheezing Aspirin (Aspirin 81 Mg Tab.Chew) 81 mg PO DAILY [facility] Last Admin: 12/11/22 08:57 Dose: 81 mg Atorvastatin Calcium (Atorvastatin 40 Mg Tablet) 40 mg PO DAILY [facility] Last Admin: 12/11/22 08:57 Dose: 40 mg Clopidogrel Bisulfate (Clopidogrel 75 Mg Tablet) 75 mg PO DAILY [facility] Last Admin: 12/11/22 08:57 Dose: 75 mg Dextrose (Dextrose 50% 50 Ml Vial) 0 ml IV UD PRN PRN Reason: Per Sliding Scale Diagnostic Test (Pha) (Accu-Chek 1 Each Strip) 1 each FS ACHS [facility] Docusate Sodium (Docusate Sodium 100 Mg Capsule) 100 mg PO BID [facility] Enoxaparin Sodium (Enoxaparin 40 Mg/0.4 Ml Syringe) 40 mg SQ DAILY [facility] Last Admin: 12/11/22 08:57 Dose: 40 mg Glucose (Dextrose 31 Gm Oral.Susp) 15 gm PO PRN PRN PRN Reason: Hypoglycemia Hydralazine HCl (Hydralazine 20 Mg/Ml Vial) 10 mg IV Q4-6HP PRN PRN Reason: Hypertension Meropenem 2 gm/ Sodium (Chloride) 50 mls @ 100 mls/hr IV Q8H [facility]; Protocol Last Admin: 12/11/22 08:32 Dose: 100 mls/hr Vancomycin HCl 1,000 mg/ (Sodium Chloride) 250 mls @ 250 mls/hr IV Q12H [facility] Ampicillin Sodium 2 gm/ Sodium (Chloride) 100 mls @ 100 mls/hr IV Q4H [facility] Insulin Human Lispro (Insulin Lispro 1 Unit/0.01 Ml Unit) 0 unit SQ ACHS [facility]; Protocol Lactulose (Lactulose 20 Gm/30 Ml Oral.Latosha) 10 gm PO DAILYP PRN PRN Reason: Constipation Lorazepam (Lorazepam 2 Mg/Ml Vial) 1 mg IV Q4-6HP PRN PRN Reason: ANXIETY/SEDATION Ondansetron HCl (Ondansetron 4 Mg/2 Ml Vial) 4 mg IV Q4HP PRN; Protocol PRN Reason: Nausea And Vomiting Senna (Sennosides 1 Tablet) 2 tab PO HSP PRN PRN Reason: Constipation Sodium Chloride (0.9 % Sodium Chloride 10 Ml Syringe) 10 ml IV Q8 [facility] Last Admin: 12/11/22 05:50 Dose: 10 ml Vancomycin HCl (Vancomycin Per Pharmacy) 1 order IV UD [facility]; Protocol A/P Assessment and plan (1) DM type 2 (diabetes mellitus, type 2): Status: Chronic (2) Hypertensive urgency: Status: Acute (3) Acute CVA (cerebrovascular accident): Status: Acute (4) Meningitis: Status: Acute Narrative A/P Narrative: Assessment and Plans: 1. Acute ischemic stroke: DDx: bacterial meningitis, aseptic meningitis Inpatient med surg with telemetry Passed bedside swallowing evaluation, resume CC diet NIH stroke scale qSHIFT Neuro Check q4hr Permissive hypertension for 48 hours with Hydralazine 10mg IV q4-6hr PRN SBBP>=220 and/or DBP>=110mmHg MRI brain stroke protocol 2D echocardiogram Lipid panel HgA1c screening Aspirin Plavix Lipitor Physical therapy Occupational therapy Speech therapy Empiric antibiotics with Vancomycin, Ampicillin, and Meropenem for 48 hours while awaiting blood culture results Since patient improved clinically, and empiric antibiotics already started, the value of delayed lumbar puncture is extremely low and hence would not proceed 2. Essential hypertension: Permissive hypertension for 48 hours with Hydralazine 10mg IV q4-6hr PRN SBBP>=220 and/or DBP>=110mmHg 3. T2DM: HgA1c screening Hold Metformin Insulin Lispro AC HS Accu Check AC HS Hypoglycemia protocol Resume CC diet GI ppx: not currently indicated DVT ppx: Lovenox Code status: Full Prognosis: Stable Disposition: inpatient med surg tele; PT OT SLT Time Spent With Patient Time: Total time spent is greater than 50% in coordination of care (as documented) at patient's floor/unit and/or counseling patient: Subsequent: Total time with patient: 35 - 49 minutes QUALITY Stroke Symptom Onset Unknown: No
[2022-12-11] MEDS: DOCUSATE SODIUM 100 MG CAPSULE PO SCH ×2 (11:45→21:04)
--- NOTE | 2022-12-11 12:04 | Magnetic Resonance Report ---
History: Stroke symptoms with headache, slurred speech, weakness and ignoring the left side of body TECHNIQUE: Stroke protocol was performed using multiple pulse sequences. FINDINGS: There is no acute infarct. No hemorrhage or neoplasm are present. There are age-related degenerative changes with mild to moderate generalized cerebral atrophy. T2 images demonstrate large confluent areas of abnormal increased signal in the right matter throughout the frontal and parietal lobes with milder involvement in the occipital and posterior temporal lobes. No cortical lesion is present. Ventricles are normal in size. No abnormal extra-axial fluid collection is present. There is moderate bilateral ethmoid and maxillary sinusitis. Allowing for differences in technique there has been no change in appearance of the brain since yesterday's CT scan. IMPRESSION: No acute infarct or hemorrhage Moderate age-related degenerative changes Dr. Alan was called with the report Interpreted and Authenticated by: Luis Enrique Amador 12/11/22
[2022-12-11] MEDS: VANCOMYCIN 1,000 MG in 0.9 % SODIUM CHLORIDE 250 ML IV SCH ×2 (12:07→22:23)
[2022-12-11] MEDS: MEROPENEM 2 GM in 0.9 % SODIUM CHLORIDE 100 ML IV SCH (21:07)
[2022-12-11] MEDS: ACETAMINOPHEN 325 MG TABLET PO PRN (22:23)
[2022-12-12] MEDS: AMPICILLIN SODIUM 2 GM in 0.9 % SODIUM CHLORIDE 100 ML IV SCH ×6 (00:38→20:57)
[2022-12-12] MEDS: 0.9 % SODIUM CHLORIDE 10 ML SYRINGE IV SCH ×3 (05:03→20:58)
[2022-12-12] MEDS: MEROPENEM 2 GM in 0.9 % SODIUM CHLORIDE 100 ML IV SCH ×3 (05:03→20:58)
[2022-12-12 07:15] LABS: Basophils # (Auto) 0.09 K/mcL (0.00-0.30); Hematocrit 37.8 % (34.1-44.9); Hemoglobin 12.8 g/dL (11.2-15.7); Lymphocytes # (Auto) 2.54 K/mcL (1.50-4.80); Lymphocytes % (Auto) 28.2 % (15.5-49.0); Mean Corpuscular HGB Conc 33.9 g/dL (31.0-36.0); Mean Platelet Volume 10.9 fL (8.8-12.5); Monocytes # (Auto) 0.93 K/mcL (0.10-0.90); Monocytes % (Auto) 10.3 % (1.0-12.0); Neutrophils % (Auto) 50.2 % (38.0-78.0); Platelet Count 272 K/mcL (140-440); RBC 3.98 M/mcL (3.59-5.38); Red Cell Distribution Width 11.8 % (11.5-14.5)
[2022-12-12 08:02] LABS: ALT/SGPT 23 U/L (<40); AST/SGOT 32 U/L (<32); Albumin 3.3 gm/dL (3.2-5.2); Albumin/Globulin Ratio 1.2 (1.0-2.3); Alkaline Phosphatase 53 U/L (39-117); Bilirubin,Total 0.4 mg/dL (0.1-1.0); Blood Urea Nitrogen 10 mg/dL (8-23); Calcium 8.8 mg/dL (8.6-10.4); Carbon Dioxide 31 mmol/L (22-30); Chloride 99 mmol/L (96-108); Globulin 2.8 gm/dL (2.2-3.7); Glomerular Filtration Rate 94; Glucose 135 mg/dL (70-105)
[2022-12-12] MEDS: INSULIN LISPRO 1 UNIT/0.01 ML UNIT SQ SCH ×4 (08:03→20:57)
--- NOTE | 2022-12-12 08:40 | Internal Med Progress Note ---
SUBJECTIVE Subjective Patient information: Note initiated : 12/12/22 at 8:36 am Service Date, if different from initiated Date: [] Patient: Suzie Disla a 87 y/o F admitted on 12/11/22 for headache. Chief Complaint: [] Interval history: Ms. Disla is a 87 year old F history of essential hypertensions, type 2 diabetes mellitus, recurrent UTI, presenting with 1 day history of new onset slurred speech and headaches. Patient was normal yesterday. Today at around 3 PM in the afternoon, her son noticed the patient's to have slurred speech. He alerted his sibling to send the patient to our ER for further evaluations. Upon arrival to our ER at around 5:30 PM, patient was coming of severe headaches. Initial work-up by the ED physician found patient to have left-sided neglect and there was no sensory deficit or motor deficit when she was asked about her individual limbs. It was also reported that patient would look over to her right and neglect. No nocturnal rigidity reported. Vital signs significant for elevated blood pressure 215 over 117 mmHg, as well as mild tachycardia with heart rate in the low 100s. Labs significant for leukocytosis with WBC 12.9. UA does not suggest the presence of urinary infections. CT of the head without contrast no acute intracranial pathologies. CT angiogram head at the neck showing atherosclerosis in the left carotid bifurcations bilaterally causing 60% stenosis at the origin of the right internal carotid and 50% stenosis at the origin of the left internal carotids. Lumbar puncture was attempted but failed. Patient was currently sedated. Admission request is called for acute stroke with differential diagnosis of viral and much less likely bacterial meningitis. 12/11: Low-grade fever Tmax 37.8 early this morning. Cultures no growth to date. NIH stroke scale pending. Patient is awake and alert and oriented x3 this morning as she passed bedside swallowing evaluations. Blood pressure is fine currently 100 over 59 mmHg. She denies any headaches. There is no more spatial neglect or visual field neglect. Patient is feeling fine. Pending MRI of the brain stroke protocol as well as 2D echocardiogram. Continue aspirin, Plavix, and Lipitor. Continue permissive hypertension for 48 hours. Resume CC diet and saline lock the patient's. Continue to hold metformin and do sliding scale insulin for glycemic control instead. Since patient improved clinically, and empiric antibiotics already started, the value of delayed lumbar puncture is extremely low and hence would not proceed. Physical therapy, Occupational Therapy, and speech therapy evaluation and treatments. 12/12: Low-grade fever Tmax 37.3 overnight. Cultures no growth to date. MRI of the brain negative for any acute ischemia. Echocardiogram report pending. Patient is awake and alert and oriented x3. She is tolerating her breakfast fine. She is coming of mild headache not as bad as compared to the episode she had at time of admissions. She denies having any confusions or GI upset such as nausea or vomiting. Blood pressures currently 164 over 82 mmHg. Continue aspirin, Plavix, and Lipitor. Continue permissive hypertension for 48 hours. d/c Telemetry. Continue to hold metformin and do sliding scale insulin for glycemic control instead. Continue empiric antibiotics vancomycin and ampicillin and meropenem for 48 hours. Physical therapy, Occupational Therapy, and speech therapy evaluation and treatments. Constitutional Vitals: Vital Signs Temp Pulse Resp BP Pulse Ox O2 Del Method O2 Flow Rate 36.4 C 72 23 H 164/82 90 Room Air 0 12/12/22 07:50 12/12/22 04:01 12/12/22 07:50 12/12/22 07:50 12/12/22 07:50 12/12/22 04:01 12/11/22 14:20 Period Temp Pulse Resp BP Sys/Field Pulse Ox O2 Del Method O2 Flow Rate Last 24 Hr 36.4 C-37.3 C 72-84 15-23 110-164/51-100 90-97 Room Air-Room Air 0 Intake and Output 12/11/22 12/12/22 12/12/22 19:59 03:59 11:59 Intake Total 1320 1030 200 Output Total 4 429 251 Balance 1316 601 -51 Weight 68.748 kg Intake & Output: Intake & Output 12/11/22 12/12/22 12/12/22 19:59 03:59 11:59 Intake Total 1320 1030 200 Output Total 4 429 251 Balance 1316 601 -51 Weight 68.748 kg Intake: IV 500 550 200 Ampicillin 2 gm In Sodium 200 200 100 Chloride 0.9% 100 ml @ 100 mls/ hr IV Q4H [facility] Rx#:[id number] Merrem 2 gm In Sodium Chloride 100 100 0.9% 100 ml @ 100 mls/hr IV Q8H [facility] Rx#:[id number] Merrem 2 gm In Sodium Chloride 50 0.9% 50 ml @ 100 mls/hr IV Q8H [facility] Rx#:[id number] Vancomycin 1,000 mg In Sodium 250 250 Chloride 0.9% 250 ml @ 250 mls/ hr IV Q12H [facility] Rx#:[id number] Oral 820 480 Output: Void Amount 425 250 # of times incontinent of urine 4 4 1 Other: Meal Dinner Percent of Meal Consumed 100% Feeding Ability Independent Urine Appearance Clear Urine Color [place] Yellow Yellow Urine Odor Strong Strong # Voids 1 Head Head exam: Present atraumatic and normal inspection Eye Eye exam: Present normal appearance ENT ENT exam: Present mucous membranes moist, normal exam and normal external ear exam Neck Neck exam: Present normal inspection Respiratory Respiratory exam: Present normal respiratory exam Cardiovascular Cardiovascular exam: Present normal rate and rhythm GI/Abdominal GI/Abdominal exam: Present normal bowel sounds Back Exam Back exam: Present normal inspection Neurological Exam Neurological exam: Present alert and oriented X3 Skin Skin exam: Present intact and warm OBJ DATA Labs 12/12/22 05:26 12/12/22 05:26 Labs: Abnormal Lab Results 12/12/22 12/12/22 12/11/22 05:26 05:26 05:39 WBC Eos % (Auto) 10.0 H [place] # (Auto) 0.93 H Eos # (Auto) 0.90 H Immature Gran # Absolute Neutrophils Sodium 132 L POC Chloride Chloride Carbon Dioxide 31 H POC Total CO2 Anion Gap 7.0 L Creatinine 0.4 L POC Creatinine Glucose 135 H 163 H POC Glucose Hemoglobin A1c 6.3 H Calcium 8.5 L AST 32 H 12/11/22 12/10/22 12/10/22 05:39 18:32 18:32 WBC 13.8 H 12.9 H Eos % (Auto) 7.3 H [place] # (Auto) 1.22 H 1.19 H Eos # (Auto) 0.94 H Immature Gran # 0.06 H Absolute Neutrophils 9.93 H Sodium POC Chloride Chloride 92 L Carbon Dioxide POC Total CO2 Anion Gap Creatinine 0.5 L POC Creatinine Glucose 110 H POC Glucose Hemoglobin A1c Calcium AST 45 H 12/10/22 18:26 WBC Eos % (Auto) [place] # (Auto) Eos # (Auto) Immature Gran # Absolute Neutrophils Sodium POC Chloride 93 L Chloride Carbon Dioxide POC Total CO2 33.0 H Anion Gap Creatinine POC Creatinine 0.5 L Glucose POC Glucose 121 H Hemoglobin A1c Calcium AST Meds: Medications Acetaminophen (Acetaminophen 325 Mg Tablet) 650 mg PO Q6HP PRN; Protocol PRN Reason: Per Pain Protocol/Fever > 101 Last Admin: 12/11/22 22:23 Dose: 650 mg Albuterol/Ipratropium (Ipratropium/Albuterol 3 Ml Ampul.Neb) 3 ml NEB Q4HRT PRN PRN Reason: Wheezing Aspirin (Aspirin 81 Mg Tab.Chew) 81 mg PO DAILY [facility] Last Admin: 12/11/22 08:57 Dose: 81 mg Atorvastatin Calcium (Atorvastatin 40 Mg Tablet) 40 mg PO DAILY [facility] Last Admin: 12/11/22 08:57 Dose: 40 mg Clopidogrel Bisulfate (Clopidogrel 75 Mg Tablet) 75 mg PO DAILY [facility] Last Admin: 12/11/22 08:57 Dose: 75 mg Dextrose (Dextrose 50% 50 Ml Vial) 0 ml IV UD PRN PRN Reason: Per Sliding Scale Diagnostic Test (Pha) (Accu-Chek 1 Each Strip) 1 each FS ACHS [facility] Last Admin: 12/12/22 08:03 Dose: 1 each Docusate Sodium (Docusate Sodium 100 Mg Capsule) 100 mg PO BID [facility] Last Admin: 12/11/22 21:04 Dose: 100 mg Enoxaparin Sodium (Enoxaparin 40 Mg/0.4 Ml Syringe) 40 mg SQ DAILY [facility] Last Admin: 12/11/22 08:57 Dose: 40 mg Ergocalciferol (Ergocalciferol (Vitamin D2) 50,000 Unit Capsule) 50,000 unit PO Th@0900 [facility] Glucose (Dextrose 31 Gm Oral.Susp) 15 gm PO PRN PRN PRN Reason: Hypoglycemia Hydralazine HCl (Hydralazine 20 Mg/Ml Vial) 10 mg IV Q4-6HP PRN PRN Reason: Hypertension Vancomycin HCl 1,000 mg/ (Sodium Chloride) 250 mls @ 250 mls/hr IV Q12H [facility] Last Infusion: 12/11/22 23:37 Dose: Infused Ampicillin Sodium 2 gm/ Sodium (Chloride) 100 mls @ 100 mls/hr IV Q4H [facility] Last Infusion: 12/12/22 06:05 Dose: Infused Meropenem 2 gm/ Sodium (Chloride) 100 mls @ 100 mls/hr IV Q8H [facility]; Protocol Last Infusion: 12/12/22 06:06 Dose: Infused Insulin Human Lispro (Insulin Lispro 1 Unit/0.01 Ml Unit) 0 unit SQ [facility]; Protocol Last Admin: 12/12/22 08:03 Dose: Not Given Lactulose (Lactulose 20 Gm/30 Ml Oral.Latosha) 10 gm PO DAILYP PRN PRN Reason: Constipation Ondansetron HCl (Ondansetron 4 Mg/2 Ml Vial) 4 mg IV Q4HP PRN; Protocol PRN Reason: Nausea And Vomiting Senna (Sennosides 1 Tablet) 2 tab PO HSP PRN PRN Reason: Constipation Sodium Chloride (0.9 % Sodium Chloride 10 Ml Syringe) 10 ml IV Q8 [facility] Last Admin: 12/12/22 05:03 Dose: Not Given Vancomycin HCl (Vancomycin Per Pharmacy) 1 order IV [facility] [place]; Protocol A/P Assessment and plan (1) DM type 2 (diabetes mellitus, type 2): Status: Chronic (2) Hypertensive urgency: Status: Acute (3) Acute CVA (cerebrovascular accident): Status: Acute (4) Meningitis: Status: Acute Narrative A/P Narrative: Assessment and Plans: 1. Acute ischemic stroke: DDx: bacterial meningitis, aseptic meningitis Inpatient med surg Passed bedside swallowing evaluation, resume CC diet NIH stroke scale qSHIFT Neuro Check q4hr Permissive hypertension for 48 hours with Hydralazine 10mg IV q4-6hr PRN SBBP>=220 and/or DBP>=110mmHg MRI brain stroke protocol negative for any acute ischemia 2D echocardiogram Lipid panel HgA1c 6.3 Aspirin Plavix Lipitor Physical therapy Occupational therapy Speech therapy Empiric antibiotics with Vancomycin, Ampicillin, and Meropenem for 48 hours while awaiting blood culture results Since patient improved clinically, and empiric antibiotics already started, the value of delayed lumbar puncture is extremely low and hence would not proceed 2. Essential hypertension: Permissive hypertension for 48 hours with Hydralazine 10mg IV q4-6hr PRN SBBP>=2 20 and/or DBP>=110mmHg 3. T2DM: HgA1c 6.3 Hold Metformin Insulin Lispro AC HS Accu Check AC HS Hypoglycemia protocol Resume CC diet GI ppx: not currently indicated DVT ppx: Lovenox Code status: Full Prognosis: Stable Disposition: inpatient med surg; PT OT SLT Time Spent With Patient Time: Total time spent is greater than 50% in coordination of care (as documented) at patient's floor/unit and/or counseling patient: Subsequent: Total time with patient: 35 - 49 minutes QUALITY Stroke Symptom Onset Unknown: No
[2022-12-12] MEDS: CLOPIDOGREL 75 MG TABLET PO SCH (08:50)
[2022-12-12] MEDS: ATORVASTATIN 40 MG TABLET PO SCH (08:50)
[2022-12-12] MEDS: ASPIRIN 81 MG TAB.CHEW PO SCH (08:50)
[2022-12-12] MEDS: ENOXAPARIN 40 MG/0.4 ML SYRINGE SQ SCH (08:50)
[2022-12-12] MEDS: DOCUSATE SODIUM 100 MG CAPSULE PO SCH ×2 (09:36→20:57)
[2022-12-12] MEDS: VANCOMYCIN 1,000 MG in 0.9 % SODIUM CHLORIDE 250 ML IV SCH ×2 (11:20→21:58)
[2022-12-12] MEDS: ACETAMINOPHEN 325 MG TABLET PO PRN (19:31)
[2022-12-13] MEDS: AMPICILLIN SODIUM 2 GM in 0.9 % SODIUM CHLORIDE 100 ML IV SCH ×3 (00:40→09:31)
[2022-12-13] MEDS: 0.9 % SODIUM CHLORIDE 10 ML SYRINGE IV SCH (05:04)
[2022-12-13] MEDS: MEROPENEM 2 GM in 0.9 % SODIUM CHLORIDE 100 ML IV SCH (05:04)
[2022-12-13 05:57] LABS: Basophils # (Auto) 0.09 K/mcL (0.00-0.30); Basophils % (Auto) 0.9 % (0.0-2.0); Eosinophils # (Auto) 0.95 K/mcL (0.00-0.70); Eosinophils % (Auto) 9.3 % (0.0-7.0); Hematocrit 38.7 % (34.1-44.9); Hemoglobin 13.2 g/dL (11.2-15.7); Lymphocytes # (Auto) 2.93 K/mcL (1.50-4.80); Lymphocytes % (Auto) 28.8 % (15.5-49.0); Mean Cell Volume 93.5 fL (80.0-100.0); Mean Corpuscular HGB Conc 34.1 g/dL (31.0-36.0); Mean Platelet Volume 10.1 fL (8.8-12.5); Monocytes # (Auto) 1.06 K/mcL (0.10-0.90); Monocytes % (Auto) 10.4 % (1.0-12.0); Neutrophils % (Auto) 50.2 % (38.0-78.0); Platelet Count 274 K/mcL (140-440); RBC 4.14 M/mcL (3.59-5.38); Red Cell Distribution Width 11.6 % (11.5-14.5); WBC 10.2 K/mcL (4.5-11.0)
[2022-12-13 06:18] LABS: ALT/SGPT 22 U/L (<40); AST/SGOT 25 U/L (<32); Albumin 3.5 gm/dL (3.2-5.2); Albumin/Globulin Ratio 1.1 (1.0-2.3); Alkaline Phosphatase 56 U/L (39-117); Bilirubin,Total 0.4 mg/dL (0.1-1.0); Blood Urea Nitrogen 9 mg/dL (8-23); Calcium 8.8 mg/dL (8.6-10.4); Carbon Dioxide 28 mmol/L (22-30); Chloride 98 mmol/L (96-108); Globulin 3.2 gm/dL (2.2-3.7); Glomerular Filtration Rate 94; Glucose 141 mg/dL (70-105)
[2022-12-13] MEDS: INSULIN LISPRO 1 UNIT/0.01 ML UNIT SQ SCH ×2 (08:35→11:45)
[2022-12-13] MEDS: ENOXAPARIN 40 MG/0.4 ML SYRINGE SQ SCH (08:35)
[2022-12-13] MEDS: DOCUSATE SODIUM 100 MG CAPSULE PO SCH (08:35)
[2022-12-13] MEDS: ATORVASTATIN 40 MG TABLET PO SCH (08:35)
[2022-12-13] MEDS: ASPIRIN 81 MG TAB.CHEW PO SCH (08:35)
[2022-12-13] MEDS: CLOPIDOGREL 75 MG TABLET PO SCH (08:35)
[2022-12-13] MEDS ORDERED: HYDROCHLOROTHIAZIDE 25 MG TABLET PO SCH (11:00)
[2022-12-13] MEDS ORDERED: LISINOPRIL 20 MG TABLET PO SCH (11:00)
[2022-12-13] MEDS: VANCOMYCIN 1,000 MG in 0.9 % SODIUM CHLORIDE 250 ML IV SCH (11:45)
--- NOTE | 2022-12-13 13:41 | Discharge Summary ---
Discharge Provider Provider IMPORTANT FOLLOW-UP INFORMATION FOR PCP: Patient information: Note initiated : 12/13/22 at 1:39 pm Service Date, if different from initiated Date: [] Patient: Suzie Disla 87 y/o F admitted on 12/11/22 for headache. Chief Complaint: [] Date of admission: 12/11/22 01:07 Discharge date: 12/13/22 Primary care physician: Mustapha Steele DO Admitting clinician: Constantine Alan Attending physician on admission: Constantine Alan Consults: 12/10/22 Consult to Physician [CONS] Stat Comment: Consulting Provider: Constantine Alan Reason For Exam: Physician to Consult Attending physician on discharge: len broussard md Discharging clinician: len broussard md COURSE Hospital Course Hospital course: 87 yo female with HTN. She presented with encephalopathy and uncontrolled HTN with SBP > 200. Workup was negative for CVA including normal MRI Brain. Echo is normal. As BP improved so too did encephalopathy. PT recommends return home to assisted living with [facility]. Pt is discharged home and given refills on her home antihypertensives. Discharge diagnosis: hypertensive encephalopathy Reason for admission: uncontrolled BP, hypertensive encephalopathy Time Spent with Patient Time attestation: Total time spent providing and/or coordinating discharge services: Time spent: Less than 30 minutes EXAM Constitutional Vitals: Temp Pulse Resp BP Pulse Ox O2 Del Method O2 Flow Rate 99.1 F H 84 20 165/86 95 Room Air 0 12/13/22 12:00 12/13/22 12:00 12/13/22 12:00 12/13/22 12:00 12/13/22 12:00 12/13/22 12:00 12/11/22 14:20 General appearance: average body habitus and no acute distress Head Head exam: Present atraumatic Respiratory Respiratory exam: Present normal respiratory exam Cardiovascular Cardiovascular exam: Present normal rate and rhythm GI/Abdominal GI/Abdominal exam: Present normal bowel sounds and soft; Absent distended Neurological Exam Neurological exam: Present CN II-XII intact, normal gait, oriented X3 and reflexes normal Discharge Data Data Completed and Pending Labs on day of discharge: Labs from last 24 hours 12/13/22 12/13/22 12/13/22 08:04 05:16 05:16 WBC 10.2 RBC 4.14 Hgb 13.2 Hct 38.7 MCV 93.5 MCH 31.9 MCHC 34.1 RDW 11.6 Plt Count 274 MPV 10.1 Immature Gran % (Auto) 0.4 Neut % (Auto) 50.2 Lymph % (Auto) 28.8 Pitkin % (Auto) 10.4 Eos % (Auto) 9.3 H Baso % (Auto) 0.9 Lymph # (Auto) 2.93 Pitkin # (Auto) 1.06 H Eos # (Auto) 0.95 H Baso # (Auto) 0.09 Immature Gran # 0.04 Absolute Neutrophils 5.11 Sodium 134 Potassium 3.3 Chloride 98 Carbon Dioxide 28 Anion Gap 8.0 BUN 9 Creatinine 0.4 L GFR Calculation 94 Glucose 141 H Calcium 8.8 Total Bilirubin 0.4 AST 25 ALT 22 Alkaline Phosphatase 56 Total Protein 6.7 Albumin 3.5 Globulin 3.2 Albumin/Globulin Ratio 1.1 Vancomycin Trough 15.1 Preliminary micro results at discharge 12/10/22 23:59 Blood Culture - Preliminary Blood 12/10/22 23:54 Blood Culture - Preliminary Blood Discharge Plan Patient/Caregiver Discharge Instructions Activity: resume usual activities as tolerated Instructions: Hypertension (DC) Activity Restrictions/Additional Instructions: Increase activity as tolerated, continue with a consistent carbohydrate diet. Your Primary Care Physician will contact you to schedule an appointment. [facility] will contact you to schedule an appointment. This discharge packet is provided to you to help keep you informed about your care. We want to ensure you get everything you need when you go home. You will also be receiving a call from us in a few days to follow up with you and see how you are doing since your discharge. This gives us a chance to listen to any concerns you maybe experiencing since you were discharged or any additional needs you may have, as well as providing us feedback on your care experience. We strive to always provide excellent care and thank you for your feedback and for choosing [facility]. Prescriptions: Continued ergocalciferol (vitamin D2) 1,250 mcg (50,000 unit) capsule 1,250 mcg PO WEEKLY Rx Instructions: Takes on metformin 500 mg tablet extended release 24 hr See Rx Instructions .ROUTE .COMPLEX Patient Comments: TAKE 2 TABLETS BY MOUTH EVERY MORNING AND 1 TABLET EVERY EVENING Rx Instructions: Take 2 tablets every morning and take 1 tablet in the evening. lisinopril 20 mg tablet 20 mg PO QDAY Qty: 30 0RF hydrochlorothiazide 25 mg tablet 25 mg PO QDAY Qty: 30 0RF Prescription drug monitoring program results: PDMP not reviewed Follow Up Plan Follow up with: Mustapha Steele DO [Primary Care Provider] - (Please see your PCP within one week. ) Patient Disposition: Home Health Service Discharge Orders: Discharge Order (Routine); Ordered 12/13/22 Ordered By: Len Broussard
[2022-12-14] MEDS ORDERED: PNEUMOCOCCAL 23-VAL P-SAC VAC 0.5 ML SYRINGE IM ONE (10:00)
[2022-12-16] MEDS ORDERED: ERGOCALCIFEROL (VITAMIN D2) 50,000 UNIT CAPSULE PO SCH (09:00)
== END 2022-12-13 14:33 | disposition home health service (06) | DRG 78 ==
LOC: ED 17:27 → ICU 12-11 01:07
PROVIDERS: ADMIT Internal Medicine; ATTEND Internal Medicine

== ENCOUNTER 2024-05-13 17:10 | Inpatient (IN) ==
[2024-05-13] MEDS: 0.9 % SODIUM CHLORIDE 1,000 ML IV ONE ×2 (18:15→20:28)
[2024-05-13] MEDS: METOPROLOL TARTRATE 5 MG/5 ML VIAL IV ONE (18:30)
[2024-05-13 18:31] LABS: Basophils # (Auto) 0.03 K/mcL (0.00-0.30); Basophils % (Auto) 0.1 % (0.0-2.0); Eosinophils # (Auto) 0 K/mcL (0.00-0.70); Eosinophils % (Auto) 0 % (0.0-7.0); Hematocrit 41.4 % (34.1-44.9); Hemoglobin 14.4 g/dL (11.2-15.7); Lymphocytes # (Auto) 0.84 K/mcL (1.50-4.80); Lymphocytes % (Auto) 3.5 % (15.5-49.0); Mean Corpuscular HGB Conc 34.8 g/dL (31.0-36.0); Mean Platelet Volume 10.3 fL (8.8-12.5); Monocytes # (Auto) 2.24 K/mcL (0.10-0.90); Monocytes % (Auto) 9.3 % (1.0-12.0); Neutrophils % (Auto) 86.7 % (38.0-78.0); Platelet Count 334 K/mcL (140-440); Red Cell Distribution Width 12.5 % (11.5-14.5); WBC 24.1 K/mcL (4.5-11.0)
[2024-05-13 18:38] LABS: ALT/SGPT 24 U/L (<40); AST/SGOT 80 U/L (<32); Albumin 3.7 gm/dL (3.2-5.2); Albumin/Globulin Ratio 0.9 (1.0-2.3); Alkaline Phosphatase 82 U/L (39-117); Blood Urea Nitrogen 14 mg/dL (8-23); Calcium 10.1 mg/dL (8.6-10.4); Carbon Dioxide 28 mmol/L (22-30); Chloride 87 mmol/L (96-108); Globulin 4.3 gm/dL (2.2-3.7); Glomerular Filtration Rate 86; Glucose 220 mg/dL (70-105); Potassium 3.7 mmol/L (3.3-5.1); Sodium 131 mmol/L (133-145)
[2024-05-13] MEDS: cefTRIAXone 1 GM VIAL IV ONE (20:02)
[2024-05-13 20:13] LABS: Appearance,Urine Cloudy (Clear); Bacteria,Urine Few /hpf (0); Bilirubin,Urine Negative (Negative); Color,Urine Yellow; Culture Indicated,Urine Yes; Glucose,Urine (UA) Negative (Negative); Ketones,Urine 80 mg/dL (Negative); Leukocyte Esterase,Urine Small /uL (Negative); Mucus,Urine Few /hpf; Nitrate,Urine Positive (Negative); PH,Urine 5.5 (5.0-9.0); Protein,Urine >=300 mg/dL (Negative); Specific Gravity,Urine >= 1.030 (1.000-1.035); Urine Blood Large ery/mcL (Negative); Urine Hyaline Cast -1000 /lph (0-2); Urine RBC 25 /hpf (0-3); Urine Squamous Epithelial Cell 4 /hpf (0-4); Urine WBC > 182 /hpf (0-4); Urobilinogen,Urine Normal
[2024-05-14] MEDS ORDERED: POTASSIUM CHLORIDE 20 MEQ TABLET PO PRN (02:08)
[2024-05-14] MEDS ORDERED: POTASSIUM CHLORIDE 40 MEQ in DEXTROSE 5% IN WATER 500 ML IV PRN (02:08)
[2024-05-14] MEDS ORDERED: DEXTROSE 50% 50 ML VIAL IV PRN (02:08)
[2024-05-14] MEDS ORDERED: IPRATROPIUM/ALBUTEROL 3 ML AMPUL.NEB NEB PRN (02:08)
[2024-05-14] MEDS ORDERED: ONDANSETRON 4 MG/2 ML VIAL IV PRN (02:08)
[2024-05-14] MEDS ORDERED: SENNOSIDES 1 TABLET PO PRN (02:08)
[2024-05-14] MEDS ORDERED: DEXTROSE 31 GM ORAL.SUSP PO PRN (02:08)
[2024-05-14] MEDS ORDERED: MAGNESIUM SULFATE 2 GM/50 ML BAG IV PRN (02:08)
[2024-05-14] MEDS ORDERED: POLYETHYLENE GLYCOL 3350 17 GM PACKET PO PRN (02:08)
[2024-05-14] MEDS: cefTRIAXone 1 GM VIAL IV SCH ×2 (02:22→11:04)
[2024-05-14] MEDS: METOPROLOL TARTRATE 5 MG/5 ML VIAL IV PRN (02:30)
[2024-05-14] MEDS: METOPROLOL TARTRATE 25 MG TABLET PO SCH (02:31)
[2024-05-14] MEDS: DOCUSATE SODIUM 100 MG CAPSULE PO SCH (02:36)
[2024-05-14] MEDS: METOPROLOL TARTRATE 25 MG TABLET ONE (02:36)
[2024-05-14] MEDS: METOPROLOL TARTRATE 5 MG/5 ML VIAL IV ONE (02:40)
[2024-05-14] MEDS: INSULIN LISPRO 1 UNIT/0.01 ML UNIT SQ SCH (02:53)
[2024-05-14] MEDS: INSULIN LISPRO 1 UNIT/0.01 ML UNIT SQ ONE (04:10)
[2024-05-14 06:33] LABS: Basophils # (Auto) 0.03 K/mcL (0.00-0.30); Basophils % (Auto) 0.2 % (0.0-2.0); Eosinophils # (Auto) 0.03 K/mcL (0.00-0.70); Eosinophils % (Auto) 0.2 % (0.0-7.0); Hematocrit 36.9 % (34.1-44.9); Hemoglobin 12.5 g/dL (11.2-15.7); Lymphocytes # (Auto) 2.11 K/mcL (1.50-4.80); Mean Cell Volume 93.9 fL (80.0-100.0); Mean Corpuscular HGB Conc 33.9 g/dL (31.0-36.0); Mean Platelet Volume 10.2 fL (8.8-12.5); Monocytes % (Auto) 13.6 % (1.0-12.0); Neutrophils % (Auto) 73.7 % (38.0-78.0); Platelet Count 295 K/mcL (140-440); RBC 3.93 M/mcL (3.59-5.38); Red Cell Distribution Width 12.9 % (11.5-14.5); WBC 17.6 K/mcL (4.5-11.0)
[2024-05-14 06:59] LABS: ALT/SGPT 20 U/L (<40); AST/SGOT 51 U/L (<32); Albumin/Globulin Ratio 0.8 (1.0-2.3); Alkaline Phosphatase 60 U/L (39-117); Bilirubin,Direct 0.3 mg/dL (<0.3); Bilirubin,Total 0.5 mg/dL (0.1-1.0); Blood Urea Nitrogen 18 mg/dL (8-23); Carbon Dioxide 25 mmol/L (22-30); Chloride 95 mmol/L (96-108); Globulin 3.6 gm/dL (2.2-3.7); Glomerular Filtration Rate 86; Glucose 144 mg/dL (70-105); Lactate Dehydrogenase 206 U/L (135-225); Phosphorous 3.2 mg/dL (2.5-4.5); Potassium 3.2 mmol/L (3.3-5.1); Sodium 131 mmol/L (133-145); Triglycerides 37 mg/dL (<150); Uric Acid 5.8 mg/dL (2.5-8.0)
[2024-05-14] MEDS ORDERED: LABETALOL HCL 20 MG/4 ML VIAL IV PRN (07:27)
[2024-05-14 07:57] LABS: Hemoglobin A1C 6.9 % Hgb (4.0-6.0)
[2024-05-14] MEDS: ACETAMINOPHEN 325 MG TABLET PO PRN (11:58)
[2024-05-14] MEDS: POTASSIUM CHLORIDE 20 MEQ TABLET PO PRN (12:52)
[2024-05-14] MEDS ORDERED: hydrALAZINE 10 MG TABLET PO PRN (13:25)
[2024-05-14] MEDS: RIVAROXABAN 20 MG TABLET PO SCH (17:49)
[2024-05-15 05:35] LABS: Basophils # (Auto) 0.04 K/mcL (0.00-0.30); Basophils % (Auto) 0.4 % (0.0-2.0); Eosinophils # (Auto) 0.34 K/mcL (0.00-0.70); Hematocrit 36.6 % (34.1-44.9); Hemoglobin 12.4 g/dL (11.2-15.7); Lymphocytes # (Auto) 2.21 K/mcL (1.50-4.80); Lymphocytes % (Auto) 19.6 % (15.5-49.0); Mean Cell Volume 93.8 fL (80.0-100.0); Mean Corpuscular HGB Conc 33.9 g/dL (31.0-36.0); Mean Platelet Volume 10.4 fL (8.8-12.5); Monocytes % (Auto) 12.4 % (1.0-12.0); Neutrophils % (Auto) 64.2 % (38.0-78.0); Platelet Count 308 K/mcL (140-440); Red Cell Distribution Width 12.9 % (11.5-14.5); WBC 11.3 K/mcL (4.5-11.0)
[2024-05-15 06:02] LABS: ALT/SGPT 24 U/L (<40); AST/SGOT 49 U/L (<32); Albumin 2.9 gm/dL (3.2-5.2); Albumin/Globulin Ratio 0.8 (1.0-2.3); Alkaline Phosphatase 60 U/L (39-117); Bilirubin,Direct < 0.2 mg/dL (0-0.3); Bilirubin,Total 0.3 mg/dL (0.1-1.0); Blood Urea Nitrogen 23 mg/dL (8-23); Calcium 9.1 mg/dL (8.6-10.4); Carbon Dioxide 27 mmol/L (22-30); Chloride 96 mmol/L (96-108); Globulin 3.6 gm/dL (2.2-3.7); Glomerular Filtration Rate 93; Glucose 137 mg/dL (70-105); Lactate Dehydrogenase 188 U/L (135-225); Phosphorous 2.6 mg/dL (2.5-4.5); Potassium 3.7 mmol/L (3.3-5.1); Sodium 132 mmol/L (133-145); Triglycerides 38 mg/dL (<150); Uric Acid 5.9 mg/dL (2.5-8.0)
[2024-05-15] MEDS: LISINOPRIL 20 MG TABLET PO SCH (08:30)
[2024-05-15] MEDS: SODIUM CHLORIDE 1 GM TABLET PO SCH (08:31)
[2024-05-15] MEDS: ALLOPURINOL 100 MG TABLET PO SCH (08:31)
[2024-05-15] MEDS ORDERED: CIPROFLOXACIN 400 MG/200 ML BAG IV SCH (11:00)
[2024-05-15] MEDS: LEVOFLOXACIN 750 MG/150 ML BAG IV SCH (11:25)
== END 2024-05-15 14:45 | disposition home or self-care (01) | DRG 871 ==
LOC: ED 17:10 → ICU 05-14 01:50
PROVIDERS: ADMIT Internal Medicine; ATTEND Internal Medicine

== ENCOUNTER 2024-05-23 13:57 | Inpatient (IN) ==
[2024-05-23] MEDS ORDERED: IOPAMIDOL 100 ML BOTTLE IV ONE (13:58)
[2024-05-23] MEDS: diphenhydrAMINE 50 MG/ML VIAL IM ONE (14:42)
[2024-05-23] MEDS: HALOPERIDOL LACTATE 5 MG/ML VIAL IM ONE (14:42)
[2024-05-23] MEDS: diphenhydrAMINE 50 MG/ML VIAL ONE (14:42)
[2024-05-23] MEDS: 0.9 % SODIUM CHLORIDE 1,000 ML IV ONE ×2 (14:42→17:35)
[2024-05-23] MEDS: ACETAMINOPHEN 1,000 MG/100 ML BAG IV ONE (14:50)
[2024-05-23 14:57] LABS: Basophils # (Auto) 0.06 K/mcL (0.00-0.30); Basophils % (Auto) 0.3 % (0.0-2.0); Eosinophils # (Auto) 0.18 K/mcL (0.00-0.70); Hematocrit 40.1 % (34.1-44.9); Hemoglobin 13.5 g/dL (11.2-15.7); Lymphocytes # (Auto) 1.95 K/mcL (1.50-4.80); Lymphocytes % (Auto) 11.1 % (15.5-49.0); Mean Cell Volume 93.7 fL (80.0-100.0); Mean Corpuscular HGB Conc 33.7 g/dL (31.0-36.0); Mean Platelet Volume 9.6 fL (8.8-12.5); Monocytes # (Auto) 1.13 K/mcL (0.10-0.90); Monocytes % (Auto) 6.4 % (1.0-12.0); Neutrophils % (Auto) 80.7 % (38.0-78.0); Platelet Count 428 K/mcL (140-440); RBC 4.28 M/mcL (3.59-5.38); Red Cell Distribution Width 12.9 % (11.5-14.5); WBC 17.5 K/mcL (4.5-11.0)
[2024-05-23] MEDS: PIPERACILLIN SODIUM/TAZOBACTAM 3.375 GM in DEXTROSE 5% IN WATER 50 ML IV ONE (15:17)
[2024-05-23 15:23] LABS: ALT/SGPT 17 U/L (<40); AST/SGOT 30 U/L (<32); Alkaline Phosphatase 88 U/L (39-117); Bilirubin,Total 0.5 mg/dL (0.1-1.0); Blood Urea Nitrogen 7 mg/dL (8-23); Calcium 9.6 mg/dL (8.6-10.4); Carbon Dioxide 28 mmol/L (22-30); Chloride 92 mmol/L (96-108); Globulin 3.9 gm/dL (2.2-3.7); Glomerular Filtration Rate 93; Glucose 149 mg/dL (70-105); Potassium 3.8 mmol/L (3.3-5.1); Sodium 132 mmol/L (133-145)
[2024-05-23 15:47] LABS: Appearance,Urine Clear (Clear); Bilirubin,Urine Negative (Negative); Color,Urine Yellow; Culture Indicated,Urine No; Glucose,Urine (UA) Negative (Negative); Ketones,Urine 15 mg/dL (Negative); Leukocyte Esterase,Urine Negative /uL (Negative); Nitrate,Urine Negative (Negative); PH,Urine 8.5 (5.0-9.0); Protein,Urine 100 mg/dL (Negative); Urine Blood Moderate ery/mcL (Negative); Urine RBC 10 /hpf (0-3); Urine Squamous Epithelial Cell 0 /hpf (0-4); Urine WBC 1 /hpf (0-4); Urobilinogen,Urine Normal
[2024-05-23] MEDS: AMIODARONE 150 MG/3 ML VIAL IV ONE (16:24)
[2024-05-23] MEDS: KETOROLAC 30 MG/ML VIAL IV ONE (16:38)
[2024-05-23] MEDS: AMIODARONE 360 MG in PREMIX 1 BAG IV SCH ×2 (16:49→17:12)
[2024-05-23] MEDS: DILTIAZEM 25 MG/5 ML VIAL IV ONE (16:49)
[2024-05-23] MEDS: DEXTROSE 5% IN WATER 100 ML IV ONE (16:50)
[2024-05-23] MEDS: OLANZapine 5 MG TABLET PO ONE (16:58)
[2024-05-23] MEDS: VANCOMYCIN 1,000 MG in 0.9 % SODIUM CHLORIDE 250 ML IV ONE (17:12)
[2024-05-23] MEDS: VANCOMYCIN PER PHARMACY IV ONE ×2 (17:12→21:51)
[2024-05-23 17:34] LABS: Prothrombin Time 13.5 sec (11.9-14.5)
[2024-05-23] MEDS: DOXYCYCLINE 100 MG in DEXTROSE 5% IN WATER 100 ML IV ONE (17:34)
[2024-05-23] MEDS ORDERED: SENNOSIDES 1 TABLET PO PRN (19:26)
[2024-05-23] MEDS ORDERED: ONDANSETRON 4 MG/2 ML VIAL IV PRN (19:26)
[2024-05-23] MEDS ORDERED: IPRATROPIUM/ALBUTEROL 3 ML AMPUL.NEB NEB PRN (19:26)
[2024-05-23] MEDS ORDERED: HALOPERIDOL LACTATE 5 MG/ML VIAL IV PRN (19:26)
[2024-05-23] MEDS ORDERED: DEXTROSE 31 GM ORAL.SUSP PO PRN (19:26)
[2024-05-23] MEDS ORDERED: DEXTROSE 50% 50 ML VIAL IV PRN (19:26)
[2024-05-23] MEDS: DOCUSATE SODIUM 100 MG CAPSULE PO SCH (21:49)
[2024-05-23] MEDS: INSULIN LISPRO 1 UNIT/0.01 ML UNIT SQ SCH (21:51)
[2024-05-23] MEDS: DILTIAZEM 125 MG in DEXTROSE 5% IN WATER 100 ML IV SCH (21:51)
[2024-05-23 22:22] LABS: Estimated Average Glucose(eAG) 151 mg/dL; Hemoglobin A1C 6.9 % Hgb (4.0-6.0)
[2024-05-23] MEDS: 0.9 % SODIUM CHLORIDE 10 ML SYRINGE IV SCH (22:29)
[2024-05-23] MEDS: PIPERACILLIN SODIUM/TAZOBACTAM 3.375 GM in DEXTROSE 5% IN WATER 100 ML IV SCH (22:29)
[2024-05-24] MEDS ORDERED: DILTIAZEM 125 MG in DEXTROSE 5% IN WATER 100 ML IV PRN (06:31)
[2024-05-24 06:42] LABS: Phosphorous 2.9 mg/dL (2.5-4.5)
[2024-05-24 06:45] LABS: Basophils # (Auto) 0.04 K/mcL (0.00-0.30); Basophils % (Auto) 0.4 % (0.0-2.0); Eosinophils % (Auto) 2.6 % (0.0-7.0); Hematocrit 34.3 % (34.1-44.9); Hemoglobin 11.6 g/dL (11.2-15.7); Lymphocytes # (Auto) 2.74 K/mcL (1.50-4.80); Lymphocytes % (Auto) 24.1 % (15.5-49.0); Mean Cell Volume 94.5 fL (80.0-100.0); Mean Corpuscular HGB Conc 33.8 g/dL (31.0-36.0); Mean Platelet Volume 9.8 fL (8.8-12.5); Monocytes # (Auto) 0.95 K/mcL (0.10-0.90); Monocytes % (Auto) 8.4 % (1.0-12.0); Neutrophils % (Auto) 64.1 % (38.0-78.0); Platelet Count 327 K/mcL (140-440); RBC 3.63 M/mcL (3.59-5.38); Red Cell Distribution Width 13.1 % (11.5-14.5); WBC 11.4 K/mcL (4.5-11.0)
[2024-05-24 06:46] LABS: ALT/SGPT 15 U/L (<40); AST/SGOT 23 U/L (<32); Albumin 3.2 gm/dL (3.2-5.2); Albumin/Globulin Ratio 1.1 (1.0-2.3); Alkaline Phosphatase 66 U/L (39-117); Bilirubin,Total 0.6 mg/dL (0.1-1.0); Blood Urea Nitrogen 8 mg/dL (8-23); Calcium 8.4 mg/dL (8.6-10.4); Carbon Dioxide 27 mmol/L (22-30); Chloride 95 mmol/L (96-108); Globulin 2.9 gm/dL (2.2-3.7); Glomerular Filtration Rate 86; Glucose 120 mg/dL (70-105); Potassium 3.3 mmol/L (3.3-5.1); Sodium 131 mmol/L (133-145)
[2024-05-24] MEDS: PANTOPRAZOLE 40 MG TABLET PO SCH (08:25)
[2024-05-24] MEDS: FUROSEMIDE 20 MG/2 ML VIAL IV SCH (08:25)
[2024-05-24] MEDS: POTASSIUM CHLORIDE 10 MEQ TABLET PO SCH (12:04)
[2024-05-24] MEDS: METOPROLOL SUCCINATE 25 MG TAB.XL.24H PO ONE (12:14)
[2024-05-24] MEDS: FUROSEMIDE 20 MG TABLET PO SCH (18:52)
[2024-05-24] MEDS: RIVAROXABAN 20 MG TABLET PO SCH (20:48)
[2024-05-25 07:09] LABS: Basophils # (Auto) 0.06 K/mcL (0.00-0.30); Basophils % (Auto) 0.5 % (0.0-2.0); Eosinophils # (Auto) 0.54 K/mcL (0.00-0.70); Eosinophils % (Auto) 4.3 % (0.0-7.0); Hematocrit 36.8 % (34.1-44.9); Hemoglobin 12.3 g/dL (11.2-15.7); Lymphocytes # (Auto) 2.75 K/mcL (1.50-4.80); Mean Cell Volume 95.1 fL (80.0-100.0); Mean Corpuscular HGB Conc 33.4 g/dL (31.0-36.0); Monocytes # (Auto) 1.32 K/mcL (0.10-0.90); Monocytes % (Auto) 10.6 % (1.0-12.0); Neutrophils % (Auto) 62.3 % (38.0-78.0); Platelet Count 342 K/mcL (140-440); RBC 3.87 M/mcL (3.59-5.38); Red Cell Distribution Width 13.3 % (11.5-14.5); WBC 12.5 K/mcL (4.5-11.0)
[2024-05-25 07:24] LABS: Phosphorous 2.9 mg/dL (2.5-4.5)
[2024-05-25 07:32] LABS: ALT/SGPT 10 U/L (<40); AST/SGOT 22 U/L (<32); Albumin/Globulin Ratio 0.9 (1.0-2.3); Alkaline Phosphatase 68 U/L (39-117); Bilirubin,Total 0.5 mg/dL (0.1-1.0); Blood Urea Nitrogen 11 mg/dL (8-23); Calcium 8.9 mg/dL (8.6-10.4); Carbon Dioxide 26 mmol/L (22-30); Chloride 98 mmol/L (96-108); Globulin 3.4 gm/dL (2.2-3.7); Glomerular Filtration Rate 81; Glucose 140 mg/dL (70-105); Potassium 3.9 mmol/L (3.3-5.1); Sodium 134 mmol/L (133-145)
[2024-05-25] MEDS: METOPROLOL SUCCINATE 25 MG TAB.XL.24H PO SCH (07:54)
[2024-05-25] MEDS ORDERED: METOPROLOL SUCCINATE 25 MG TAB.XL.24H PO SCH (09:00)
[2024-05-25] MEDS: VITAMIN D3 25 MCG TABLET PO SCH (09:11)
[2024-05-25] MEDS: ALLOPURINOL 100 MG TABLET PO SCH (09:11)
[2024-05-26 06:55] LABS: Basophils # (Auto) 0.05 K/mcL (0.00-0.30); Basophils % (Auto) 0.3 % (0.0-2.0); Eosinophils # (Auto) 0.33 K/mcL (0.00-0.70); Eosinophils % (Auto) 2.2 % (0.0-7.0); Hematocrit 37.2 % (34.1-44.9); Hemoglobin 12.5 g/dL (11.2-15.7); Lymphocytes # (Auto) 2.28 K/mcL (1.50-4.80); Lymphocytes % (Auto) 15.1 % (15.5-49.0); Mean Cell Volume 95.1 fL (80.0-100.0); Mean Corpuscular HGB Conc 33.6 g/dL (31.0-36.0); Mean Platelet Volume 10.5 fL (8.8-12.5); Monocytes % (Auto) 11.9 % (1.0-12.0); Neutrophils % (Auto) 70.2 % (38.0-78.0); Platelet Count 316 K/mcL (140-440); RBC 3.91 M/mcL (3.59-5.38); Red Cell Distribution Width 13.3 % (11.5-14.5); WBC 15.1 K/mcL (4.5-11.0)
[2024-05-26 07:02] LABS: ALT/SGPT 8 U/L (<40); AST/SGOT 22 U/L (<32); Albumin 3.1 gm/dL (3.2-5.2); Albumin/Globulin Ratio 0.9 (1.0-2.3); Alkaline Phosphatase 70 U/L (39-117); Bilirubin,Total 0.8 mg/dL (0.1-1.0); Blood Urea Nitrogen 11 mg/dL (8-23); Calcium 8.9 mg/dL (8.6-10.4); Carbon Dioxide 28 mmol/L (22-30); Chloride 95 mmol/L (96-108); Globulin 3.6 gm/dL (2.2-3.7); Glomerular Filtration Rate 81; Glucose 155 mg/dL (70-105); Potassium 3.8 mmol/L (3.3-5.1); Sodium 132 mmol/L (133-145)
[2024-05-26 07:03] LABS: Phosphorous 2.8 mg/dL (2.5-4.5)
[2024-05-26] MEDS: METOPROLOL SUCCINATE 25 MG TAB.XL.24H PO SCH (08:52)
[2024-05-26] MEDS: LISINOPRIL 20 MG TABLET PO SCH (11:37)
[2024-05-27 06:54] LABS: Basophils # (Auto) 0.06 K/mcL (0.00-0.30); Basophils % (Auto) 0.3 % (0.0-2.0); Eosinophils % (Auto) 1.1 % (0.0-7.0); Hematocrit 35.6 % (34.1-44.9); Hemoglobin 12.1 g/dL (11.2-15.7); Lymphocytes # (Auto) 1.81 K/mcL (1.50-4.80); Lymphocytes % (Auto) 10.3 % (15.5-49.0); Mean Cell Volume 93.4 fL (80.0-100.0); Mean Platelet Volume 10.3 fL (8.8-12.5); Monocytes # (Auto) 2.22 K/mcL (0.10-0.90); Monocytes % (Auto) 12.6 % (1.0-12.0); Neutrophils % (Auto) 75.3 % (38.0-78.0); Platelet Count 338 K/mcL (140-440); RBC 3.81 M/mcL (3.59-5.38); Red Cell Distribution Width 13.3 % (11.5-14.5); WBC 17.6 K/mcL (4.5-11.0)
[2024-05-27 07:12] LABS: ALT/SGPT 11 U/L (<40); AST/SGOT 27 U/L (<32); Albumin 2.9 gm/dL (3.2-5.2); Albumin/Globulin Ratio 0.8 (1.0-2.3); Alkaline Phosphatase 79 U/L (39-117); Bilirubin,Direct 0.3 mg/dL (<0.3); Bilirubin,Total 0.9 mg/dL (0.1-1.0); Blood Urea Nitrogen 11 mg/dL (8-23); Carbon Dioxide 26 mmol/L (22-30); Chloride 93 mmol/L (96-108); Globulin 3.7 gm/dL (2.2-3.7); Glomerular Filtration Rate 86; Glucose 158 mg/dL (70-105); Lactate Dehydrogenase 235 U/L (135-225); Phosphorous 2.6 mg/dL (2.5-4.5); Potassium 3.9 mmol/L (3.3-5.1); Sodium 130 mmol/L (133-145); Triglycerides 34 mg/dL (<150); Uric Acid 2.3 mg/dL (2.5-8.0)
[2024-05-27] MEDS ORDERED: METOPROLOL TARTRATE 5 MG/5 ML VIAL IV PRN (07:54)
[2024-05-27] MEDS: ACETAMINOPHEN 325 MG TABLET PO PRN (08:46)
[2024-05-27] MEDS: FUROSEMIDE 40 MG/4 ML VIAL IV SCH (08:46)
[2024-05-27 09:08] LABS: Eosinophils % (Manual) 1 % (0-7); Lymphocytes % 13 % (15-49); Monocytes % (Manual) 9 % (1-12); Platelet Estimate NORMAL (Normal); RBC Morphology NORMAL (Normal); Segmented Neutrophils % 77 % (38-78)
[2024-05-27] MEDS: LACTOBACILLUS 1 CAPSULE PO SCH ×2 (11:50→22:11)
[2024-05-28 06:24] LABS: Basophils # (Auto) 0.08 K/mcL (0.00-0.30); Basophils % (Auto) 0.6 % (0.0-2.0); Eosinophils # (Auto) 0.37 K/mcL (0.00-0.70); Eosinophils % (Auto) 2.6 % (0.0-7.0); Hematocrit 36.9 % (34.1-44.9); Hemoglobin 12.3 g/dL (11.2-15.7); Lymphocytes # (Auto) 1.82 K/mcL (1.50-4.80); Lymphocytes % (Auto) 12.7 % (15.5-49.0); Mean Cell Volume 94.6 fL (80.0-100.0); Mean Corpuscular HGB Conc 33.3 g/dL (31.0-36.0); Mean Platelet Volume 10.3 fL (8.8-12.5); Monocytes % (Auto) 11.2 % (1.0-12.0); Neutrophils % (Auto) 72.6 % (38.0-78.0); Platelet Count 323 K/mcL (140-440); Red Cell Distribution Width 13.1 % (11.5-14.5); WBC 14.3 K/mcL (4.5-11.0)
[2024-05-28 06:43] LABS: ALT/SGPT 12 U/L (<40); AST/SGOT 24 U/L (<32); Albumin 2.9 gm/dL (3.2-5.2); Albumin/Globulin Ratio 0.7 (1.0-2.3); Alkaline Phosphatase 69 U/L (39-117); Bilirubin,Direct 0.2 mg/dL (<0.3); Bilirubin,Total 0.6 mg/dL (0.1-1.0); Blood Urea Nitrogen 20 mg/dL (8-23); Calcium 9.1 mg/dL (8.6-10.4); Carbon Dioxide 27 mmol/L (22-30); Chloride 92 mmol/L (96-108); Globulin 3.9 gm/dL (2.2-3.7); Glomerular Filtration Rate 81; Glucose 143 mg/dL (70-105); Lactate Dehydrogenase 153 U/L (135-225); Phosphorous 2.9 mg/dL (2.5-4.5); Potassium 3.6 mmol/L (3.3-5.1); Sodium 130 mmol/L (133-145); Triglycerides 31 mg/dL (<150); Uric Acid 3.1 mg/dL (2.5-8.0)
[2024-05-28 07:56] LABS: Eosinophils % (Manual) 4 % (0-7); Lymphocytes % 13 % (15-49); Monocytes % (Manual) 7 % (1-12); Platelet Estimate NORMAL (Normal); RBC Morphology NORMAL (Normal); Segmented Neutrophils % 76 % (38-78)
[2024-05-28] MEDS: SODIUM CHLORIDE 1 GM TABLET PO SCH (12:28)
[2024-05-29 06:28] LABS: Basophils # (Auto) 0.06 K/mcL (0.00-0.30); Basophils % (Auto) 0.6 % (0.0-2.0); Eosinophils # (Auto) 0.32 K/mcL (0.00-0.70); Hematocrit 34.8 % (34.1-44.9); Hemoglobin 11.6 g/dL (11.2-15.7); Lymphocytes # (Auto) 2.24 K/mcL (1.50-4.80); Lymphocytes % (Auto) 20.7 % (15.5-49.0); Mean Cell Volume 95.3 fL (80.0-100.0); Mean Corpuscular HGB Conc 33.3 g/dL (31.0-36.0); Mean Platelet Volume 10.5 fL (8.8-12.5); Monocytes # (Auto) 1.44 K/mcL (0.10-0.90); Monocytes % (Auto) 13.3 % (1.0-12.0); Neutrophils % (Auto) 62.2 % (38.0-78.0); Platelet Count 300 K/mcL (140-440); RBC 3.65 M/mcL (3.59-5.38); Red Cell Distribution Width 13.1 % (11.5-14.5); WBC 10.8 K/mcL (4.5-11.0)
[2024-05-29 06:54] LABS: ALT/SGPT 16 U/L (<40); AST/SGOT 33 U/L (<32); Albumin 2.7 gm/dL (3.2-5.2); Albumin/Globulin Ratio 0.8 (1.0-2.3); Alkaline Phosphatase 66 U/L (39-117); Bilirubin,Direct < 0.2 mg/dL (0-0.3); Bilirubin,Total 0.4 mg/dL (0.1-1.0); Blood Urea Nitrogen 20 mg/dL (8-23); C-Reactive Protein 9.85 mg/dL (0.03-0.80); Calcium 9.5 mg/dL (8.6-10.4); Carbon Dioxide 27 mmol/L (22-30); Chloride 97 mmol/L (96-108); Globulin 3.6 gm/dL (2.2-3.7); Glomerular Filtration Rate 77; Glucose 130 mg/dL (70-105); Lactate Dehydrogenase 159 U/L (135-225); Phosphorous 3.3 mg/dL (2.5-4.5); Potassium 3.5 mmol/L (3.3-5.1); Sodium 134 mmol/L (133-145); Triglycerides 34 mg/dL (<150); Uric Acid 3.4 mg/dL (2.5-8.0)
== END 2024-05-29 15:16 | DRG 193 ==
LOC: ED 13:57 → ICU 19:13 → MEDSUR 05-27 13:26
PROVIDERS: ADMIT Internal Medicine; ATTEND Internal Medicine